=== PATIENT | female | born 1965 | race Caucasian/White ===

== ENCOUNTER 2019-10-05 01:14 | Emergency (ER) | payer MEDICAID, OTHER ==
[~2019-10-05] VITALS: Ht 164 cm; Wt 72.5 kg
--- OUTSIDE RECORDS SUMMARY | 2019-10-05 01:25 | XMS REPORT ---
Discharge Summary 2.1 Created on: 05/17/2019 ALOK ECKERT : 1965 Sex: Female Author Author ALOK PAIZ Organization Unknown Address [address] [place], [place] [address] Care Team Providers Care Disability Liaison Officer Name Role Phone Xwatchlist TIEN PAINTER Navin MILLER ROD MILL Anesth ANANYA Bro MD Attending TAMEKA HARE Physasst UNIQUE HARE Physasst LEONARDO VILLARREAL APRN [facility] Primcare Functional Status No Data Found Immunization Immunization Date Status Additional Notes Code Code System pneumococcal polysac charide PPV23 pneumococcal polysaccharide PPV23 Completed 33 CVX pneumococcal polysac charide PPV23 pneumococcal polysaccharide PPV23 Completed 33 CVX Influenza, seasonal, injectable Influenza, seasonal, injectable 03/07 Completed 141 CVX influenza, injectabl e, quadrivalent, preservative free influenza, injectable, quadrivalent, pre servative free 05/19/2018 Completed 150 CVX Mental Status No Data Found Results CBC W/ AUTO DIFF (RFLX MAN DIFF IF IND) - Collect Date/Time: 05/15/2019 06:20 [facility] ID: [id number] [address], [place], [place], [id number] LOINC: 45326-2 Test Value Unit Reference Range Code Code System WBC 16.2 TH/CMM L=4.5 H=10.8 87986-4 LOINC RBC 3.99 ML/CMM L=4.20 H=5.40 789-8 LOINC HGB 12.1 G/DL L=12.0 H=16.0 7 18-7 LOINC HCT 36.9 % L=37.0 H=47.0 4544 -3 LOINC MCV 93 FL L=81 H=99 MCH 30.3 PG L=27.0 H=33.0 MCHC 32.8 G/DL L=31.0 H=36.0 RDW SD 41 FL L=36 H=50 RDW CV 12.1 % L=0.0 H=14.8 MPV 10.7 FL L=9.3 H=12.5 PLT 194 TH/CMM L=130 H=440 777-3 LOINC NRBC# 0.00 TH/CMM L=0.00 H=0.00 NRBC% 0.0 /100WBC L=0.0 H=2.0 %NEUT 92.3 % %LYMP 4.9 % %MONO 2.2 % %EOS 0.0 % %BASO 0.1 % #NEUT 14.97 TH/CMM L=2.10 H=8.20 #LYMP 0.80 TH/CMM L=0.90 H=5.20 #MONO 0.35 TH/CMM L=0.16 H=1.00 #EOS 0.00 TH/CMM L=0.00 H=0.80 #BASO 0.01 TH/CMM L=0.00 H=0.20 MANUAL DIFF SEE BELOW SEGS 83 % BANDS 14 % LYMPHS 3 % MONOS EOS BASO METAS MYELO PROS BLASTS ATYP LYMPHS RBC MORPH BASIC METABOLIC PANEL - Collect Date/Deon e: 05/15/2019 06:20 [facility] ID: [id number] [address], [place], [place], [id number] LOINC: 20105-1 Test Value Unit Reference Range Code Code System GLUCOSE 291 MG/DL L=70 H=100 2 345-7 LOINC SODIUM 136 MEQ/L L=135 H=148 2 951-2 LOINC POTASSIUM 4.3 MEQ/L L=3.5 H=5.3 2 823-3 LOINC CHLORIDE 105 MEQ/L L=96 H=110 2 075-0 LOINC CO2 16 MEQ/L L=22 H=29 20 28-9 LOINC BUN 14 MG/DL L=8 H=22 30 94-0 LOINC CREATININE 0.95 MG/DL L=0.57 H=1.11 2160-0 LOINC CALCIUM 9.0 MG/DL L=8.2 H=10.6 27564-6 LOINC AGE 53 yrs GFR NonAA 62 GFR AA 75 eGFR 62 mL/min/1.7 eGFR AA* >60 TEST - Collect Date/Time: 05/05 08:40 [facility] ID: [id number] [address], [place], [place], [id number] LOINC: 2118-01 Test Value Unit Reference Range Code Code System TEST NEGATIVE 2118-01 LOINC KNEE 1V OR 2V - Completed: 05/14/2019 13 :40 LOINC: EXAMINATION:KNEE 1V OR 2VREASON FOR EXAM :Post-Op Evaluation Left/Right?: right COMPARISON:None available.TECHNIQUE: AP and lateral views of the right knee were obtained. FINDINGS:There is a right total knee arthroplasty. No periprosthetic lucency or fracture is seen. Alignment is near anatomic. IMPRESSION:Right total knee arthroplasty.Reviewed and Electronically Signed by: Jhonathan Fernández MD DABRSigned Date/Time: 05/14/2019 4:42 PMJob ID#: [id number] Social History Type Status Start Date End Date Code Code System Smoking History Current every day smoker 723751792 SNOMED-CT Vital Signs Vital Sign Value Unit Elgin Value Elgin Unit Date/Time Recent/Initial? Code Cod e System Systolic Blood Pressure 139 mm[Hg] 05/15/2019 11:51 Most Recent 8480-6 LOINC Diastolic Blood Pressure 92 mm[Hg] 05/15/2019 11:51 Most Recent 8462-4 LOINC Systolic Blood Pressure 134 mm[Hg] 04/29/2019 09:18 Initial 8480-6 LOINC Diastolic Blood Pressure 87 mm[Hg] 04/29/2019 09:18 Initial 8462-4 LOINC O2 Saturation 92 % 05/15/2019 11:51 Most Recent 70942-9 LOINC O2 Saturation 10 0 % 04/29/2019 09:18 Initial 14722-1 LOINC Pulse 94.0 /min 1 07/16/2018 11:51 Most Recent 8867-4 LOINC Pulse 81.0 /min 1 06/29/2018 09:18 Initial 8867-4 LOINC Respiration 18 /min 05/15/2019 11:51 Most Recent 9279-1 LOINC Respiration 16 /min 04/29/2019 09:18 Initial 9279-1 LOINC Temperature 36.6 Glendy 97.9 F 05/15/2019 11:51 Most Recent 8310-5 LOINC Temperature 36.1 Glendy 97.0 F 05/14/2019 14:05 Initial 8310-5 LOINC Assessment You had the following problems: STATUS POST KNEE REPLACEMENT Hospital Discharge Instructions Should you have any questions prior to discharge, please contact a member of your healthcare team. If you have left the hospital and have any questions, please contact your primary care physician. INSTRUCTIONS GIVEN AND DISCHARGE TO: Patient, Spouse/SO, Discharged to:__HOME__ With:__S/O_. INSTRUCTIONS GIVEN BY (TYPE IN NAME AND DATE) Goldie CAMPBELL RN Reason For Referral No Data Found Hospital Course You were admitted to [facility] on 05/14/2019 08:17 with a principal diagnosis of Unilateral primary osteoarthritis, right knee You were discharged from [facility] on 05/15/2019 15:46 Medications Medication Start Date En d Date Route Frequency Dose Code Code System Medication Instructions Spironolactone 25MG Oral Tablet 05/15/2019 Unknown ORAL DAILY 25 MILLIGRAMS 3130 96 RxNorm 25 YUSEF GRAMS ORAL DAILY Potassium Chloride 2 0MEQ Oral Tablet, Extended Release 05/15/2019 Unknown ORAL NEEDED 20 MEQ 8276668 RxNorm 20 MEQ ORAL NEEDED Losartan Potassium 5 0MG Oral Tablet 05/15/2019 Unknown ORAL DAILY 50 MILLIGRAMS 9794 92 RxNorm 50 YUSEF GRAMS ORAL DAILY Lasix 20MG Oral Tablet 05/15/2019 Unknown ORAL NEEDED 20 MILLIGRAMS 547179 RxNorm 20 YUSEF GRAMS ORAL NEEDED Carvedilol 6.25MG Or al Tablet 05/15/2019 Unknown ORAL TWO TIMES A DAY 6.25 MILLIGRAMS 19990804 RxNorm 6.25 MIL LIGRAMS ORAL TWO TIMES A DAY Atorvastatin Calcium 40MG Oral Tablet 05/15/2019 Unknown ORAL AT BEDTIME 40 MILLIGRAMS 104941 RxNorm 40 YUSEF GRAMS ORAL AT BEDTIME Albuterol Sulfate 0. 09MG/1Actuation Inhalation Suspension 05/15/2019 Unknown INHALATION NEEDED 1 P UFF 4031314 RxNorm 1 PUFF INHALATION NEEDED Advair Diskus 500/50 0.5MG-0.05MG/Actuati Inhalation Disk 05/15/2019 Unknown INHALATION TWO TIMES A DAY 1 PUFF 725867 RxNorm 1 PUFF INHALATION TWO TIMES A DAY oxyCODONE HCl 5MG Or al Tablet 05/15/2019 Unknown BY MO UT NEEDED 9411286 RxNorm 1-2 TABL ET BY MOUTH NEEDED FOR PAIN ASPIRIN 05/15/2019 Unknown ORAL DAILY 81 MILLIGRAMS RxNorm 81 MILLIGRAMS ORAL D AILY Procedures Procedure Name Date Stat us Code Code System Replacement of Right Knee Joint with Synthetic Substitute, Cemented, Open 05/14/2019 completed [id number] ICD10 PCS Implants Implanted MARIA DE JESUS Status Assigning Authority Procedure Date ADVANCE STATURE FEMORAL SIZE 3 RIGHT Active TOTAL RIGHT KNEE REPLACEMENT 05/14/2019 ADVANCE II TIBIAL BASE SIZE 3 STD Active TOTAL RIGHT KNEE REPLACEMENT 05/14/2019 ADVANCE II MEDIAL PIVOT INSERT SIZE 3 RI GHT MEDIAL PIVOT THICKNESS 10MM Active TOTAL RIGHT KNEE REPLACEMENT 05/14/2019 ADVANCE ONLAY ALL-POLY PATELLA SIZE 35 MM THICKNESS 8M M Active TOTAL RIGHT KNE E REPLACEMENT 05/14/2019 Orthopaedic cement, non-medicated 9153260552638302898835422164760652 Active FDA TOTAL RIGHT KNEE REPLACEMENT 019 Problems Problem Start Date Resol marnie Date Status Code Code System STATUS POST KNEE REPLACEMENT active 7863222563333 SNO MED-CT DIVERTICULITIS 018 resolved 863899466 SNOME D-CT CHEST PAIN 05/14/2019 resolved 62858880 SNOMED-CT PULMONARY EDEMA 2018 resolved 23248453 SNOMED -CT HYPERTENSION 05/14/2019 resolved 62865968 SNOMED-CT Allergies Allergy Substance Reaction Severity Start Date Concern Status Code Code System LISINOPRIL Mild to Moderate Active 06591 RxNorm Plan of Treatment No Data Found Encounters No Data Found Goals No Data Found Discharge Medications No Data Found Discharge Diagnosis Discharge Diagnosis Diagnosis Code Start Date Unilateral primary osteoarthritis, right knee M1711 05/14/2019 Health Concerns Section No Data Found
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
--- OUTSIDE RECORDS SUMMARY | 2019-10-05 01:26 | XMS REPORT ---
Author Author Nicole PATTERSON Organization [facility] Address [address] [place] [address] Care Team Providers Care Auto Mechanic Supervisor Name Role Phone PHIL PATTERSON Unavailable PROBLEMS Type Condition ICD9-CM Code KSI00-HG Code Onset Dates Condition S tatus SNOMED Code Problem Primary osteoarthritis of both knees M17.0 Active 586904113 Problem Gastroesophageal reflux disease, esophagitis pre sence not specified K21.9 Active 344569822 Problem Essential hypertension I10 Active 71615753 ALLERGIES No Known Allergies SOCIAL HISTORY Never Assessed PLAN OF CARE Activity Details Follow Up 1 Week Reason:after stress t est VITAL SIGNS Height 65 in 2016-07-06 Weight 162.6 lbs 2016-07-06 Temperature 97.3 degrees Fahrenheit 2016-07-06 Heart Rate 96 bpm 2016-07-06 Respiratory Rate 20 2016-07-06 Oximetry 99 % 2016-07-06 BMI 27.06 kg/m2 2016-07-06 Blood pressure systolic 162 mmHg 2016-07-06 Blood pressure diastolic 99 mmHg 2016-07-06 MEDICATIONS Medication Instructions Dosage Frequency Start Date End Date Duration S tatus Excedrin Migraine 250-250-65 MG Orally Once a day 3 tabs 24h Active Metoprolol Tartrate 25 MG Orally Twice a day 1 tablet with food 12h Jul, 30 day(s) Active RESULTS No Results PROCEDURES Procedure Date Ordered Result Body Site EKG, TRACING (IN-HOUSE) 2016-07-06 N/A MEASURE BLOOD OXYGEN LEVEL Jul 06, 2016 ELECTROCARDIOGRAM, TRACING Jul 06, 2016 IMMUNIZATIONS No Known Immunizations MEDICAL (GENERAL) HISTORY Type Description Date Medical History hypertension Medical History Fluid on knees Surgical History knee surgery Lt X 2 Surgical History tubal ligation Surgical History lump removed Lt breast Surgical History ovary removed Lt Surgical History tonsillectomy and adenoidectomy Surgical History tubes put in ears Surgical History colonoscopy Surgical History heart cath 10/2016 Hospitalization History surgeries Hospitalization History child
--- OUTSIDE RECORDS SUMMARY | 2019-10-05 01:26 | XMS REPORT ---
Author Author Nicole PATTERSON Organization [facility] [place] Address [address] [place] [address] Care Team Providers Care Freelance Web Designer Name Role Phone LEONARDOZACKPHIL Unavailable PROBLEMS Type Condition ICD9-CM Code ICH76-NB Code Onset Dates Condition S tatus SNOMED Code Problem Primary osteoarthritis of both knees M17.0 Active 432436964 Problem Gastroesophageal reflux disease, esophagitis pre sence not specified K21.9 Active 872150114 Problem Essential hypertension I10 Active 33978002 ALLERGIES No Information ENCOUNTERS Encounter Location Date Diagnosis [facility] [address] [id number] [place] [address] Apr, Weight gain R63.5 [facility] [address] [id number] [place] [address] Feb, Essential hypertension I10 ; Primary ost eoarthritis of both knees M17.0 ; Gastroesophageal reflux disease, esophagitis presence not specified K21.9 and Encounter for immunization Z23 [facility] [address] [id number] [place] [address] Dec, Gastroesophageal reflux disease, esophag itis presence not specified K21.9 [facility] [address] [id number] [place] [address] 14 Nov, 2016 Essential hypertension I10 and Gastroeso phageal reflux disease, esophagitis presence not specified K21.9 [facility] [address] [id number] [place] [address] Nov, [facility] [address] [id number] [place] [address] October, [facility] [address] [id number] [place] [address] October, [facility] [address] [id number] [place] [address] 14 Aug, 2016 Essential hypertension I10 [facility] [address] [id number] [place] [address] 09 Aug, 2016 Essential hypertension I10 [facility] [address] [id number] [place] [address] 07 Aug, 2016 [facility] [address] [id number] [place] [address] Jul, Essential hypertension I10 and Shortness of breath R06.02 [facility] [place] [address] [id number] [place] [address] Jul, Essential hypertension I10 and Shortness of breath R06.02 [facility] [place] [address] [id number] [place] [address] Jul, Shortness of breath R06.02 ; Essential h ypertension I10 and Tobacco dependence F17.200 [facility] [address] [id number] [place] [address] Jul, Essential hypertension I10 and Shortness of breath R06.02 IMMUNIZATIONS No Known Immunizations SOCIAL HISTORY Never Assessed REASON FOR VISIT med refills PLAN OF CARE VITAL SIGNS MEDICATIONS Medication Instructions Dosage Frequency Start Date End Date Duration S tatus Meloxicam 15 mg Orally Once a day 1 tablet 24h 13 Nov, 2016 30 day(s) Active Pantoprazole Sodium 20 mg Orally Once a day 1 tablet 24h Nov 30 day(s) Active RESULTS No Results PROCEDURES No Known procedures INSTRUCTIONS MEDICATIONS ADMINISTERED [...]
--- OUTSIDE RECORDS SUMMARY | 2019-10-05 01:26 | XMS REPORT ---
Author Author Nicole PATTERSON Organization [facility] Address [address] [place] [address] Care Team Providers Care Orthopedics Nurse Name Role Phone PHIL PATTERSON Unavailable PROBLEMS Type Condition ICD9-CM Code BLW40-KM Code Onset Dates Condition S tatus SNOMED Code Problem Primary osteoarthritis of both knees M17.0 Active 840910130 Problem Gastroesophageal reflux disease, esophagitis pre sence not specified K21.9 Active 415810100 Problem Essential hypertension I10 Active 98070122 ALLERGIES No Information SOCIAL HISTORY Never Assessed PLAN OF CARE VITAL SIGNS MEDICATIONS No Known Medications RESULTS No Results PROCEDURES No Known procedures IMMUNIZATIONS No Known Immunizations MEDICAL (GENERAL) HISTORY [...]
--- OUTSIDE RECORDS SUMMARY | 2019-10-05 01:26 | XMS REPORT ---
Author Author Nicole PATTERSON Organization [facility] Address [address] [place] [address] Care Team Providers Care Hand Candy Molder Name Role Phone PHIL PATTERSON Unavailable PROBLEMS Type Condition ICD9-CM Code LMN05-DE Code Onset Dates Condition S tatus SNOMED Code Problem Primary osteoarthritis of both knees M17.0 Active 368377634 Problem Gastroesophageal reflux disease, esophagitis pre sence not specified K21.9 Active 150886552 Problem Essential hypertension I10 Active 75391372 ALLERGIES No Information SOCIAL HISTORY Never Assessed [...]
--- OUTSIDE RECORDS SUMMARY | 2019-10-05 01:26 | XMS REPORT ---
Author Author Nicole PATTERSON Organization [facility] Address [address] [place] [address] Care Team Providers Care Trimmer Helper Name Role Phone PHIL PATTERSON Unavailable PROBLEMS Type Condition ICD9-CM Code [id number] Code Onset Dates Condition S tatus SNOMED Code Problem Primary osteoarthritis of both knees M17.0 Active 794978712 Problem Gastroesophageal reflux disease, esophagitis pre sence not specified K21.9 Active 503769304 Problem Essential hypertension I10 Active [id number] ALLERGIES No Known Allergies SOCIAL HISTORY Never Assessed PLAN OF CARE Activity Details Follow Up 2 Weeks Reason:bp recheck VITAL SIGNS Height 65 in 2016-07-13 Weight 166.2 lbs 2016-07-13 Temperature 97.5 degrees Fahrenheit 2016-07-13 Heart Rate 88 bpm 2016-07-13 Respiratory Rate 20 2016-07-13 BMI 27.65 kg/m2 2016-07-13 Blood pressure systolic 152 mmHg 2016-07-13 Blood pressure diastolic 95 mmHg 2016-07-13 MEDICATIONS Medication Instructions Dosage Frequency Start Date End Date Duration S tatus Symbicort 160-4.5 MCG/ACT Inhalation Twice a day- rins e mouth and spit after use 2 puffs Jul, Active Excedrin Migraine 250-250-65 MG Orally Once a day 3 tabs 24h Active Amlodipine Besylate 5 mg Orally Once a day in AM 1 tablet Jul Active Metoprolol Tartrate 25 MG Orally Twice a day 1 tablet with food 12h 30 day(s) Active Combivent Respimat 20-100 MCG/ACT Inhalation Four times a day 1 puf f 6h Jul, Active RESULTS Name Result Date Reference Range Lexiscan Stress Nuclear Test PROCEDURES Procedure Date Ordered Result Body Site PULMONARY FUNCTION TEST 2016-07-13 N/A IMMUNIZATIONS No Known Immunizations MEDICAL (GENERAL) HISTORY [...]
--- OUTSIDE RECORDS SUMMARY | 2019-10-05 01:26 | XMS REPORT ---
Author Author Nicole PATTERSON Organization [facility] Address [address] [place] [address] Care Team Providers Care Data Analytics Developer Name Role Phone PHIL PATTERSON Unavailable PROBLEMS Type Condition ICD9-CM Code [id number] Code Onset Dates Condition S tatus SNOMED Code Problem Primary osteoarthritis of both knees M17.0 Active 179564083 Problem Gastroesophageal reflux disease, esophagitis pre sence not specified K21.9 Active 461053771 Problem Essential hypertension I10 Active 99731204 ALLERGIES No Known Allergies ENCOUNTERS Encounter [facility] Date [facility] [address] [id number] [place] [address] Apr, Weight gain R63.5 [facility] [address] [id number] [place] [address] Feb, Essential hypertension I10 ; Primary ost eoarthritis of both knees M17.0 ; Gastroesophageal reflux disease, esophagitis presence not specified K21.9 and Encounter for immunization Z23 [facility] [address] [id number] [place] [address] Dec, Gastroesophageal reflux disease, esophag itis presence not specified K21.9 [facility] [address] [id number] [place] [address] 14 Nov, 2016 Essential hypertension I10 and Gastroeso phageal reflux disease, esophagitis presence not specified K21.9 [facility] [address] [id number] [place] [address] Nov, [facility] [address] [id number] [place] [address] October, [facility] [address] [id number] [place] [address] October, [facility] [address] [id number] [place] [address] 14 Aug, 2016 [facility] I10 [facility] [address] [id number] [place] [address] 09 Aug, 2016 Essential hypertension I10 [facility] [address] [id number] [place] [address] Aug, [facility] [address] [id number] [place] [address] Jul, Essential hypertension I10 and Shortness of breath R06.02 [facility] [address] [id number] [place] [address] Jul, Essential hypertension I10 and Shortness of breath R06.02 [facility] [address] [id number] [place] [address] Jul, Shortness of breath R06.02 ; Essential h ypertension I10 and Tobacco dependence F17.200 [facility] [address] [place] [address] DR [id number] [place] [address] Jul, Essential hypertension I10 and Shortness of breath R06.02 IMMUNIZATIONS No Known Immunizations SOCIAL HISTORY Never Assessed REASON FOR VISIT would like to talk about diet plan steriod inhaler is putting on weight. period irregular this month. Diane evangelista PLAN OF CARE Activity Details Follow Up prn Reason: VITAL SIGNS Height 65 in 2017-04-26 Weight 168.5 lbs 2017-04-26 Temperature 98.1 degrees Fahrenheit 2017-04-26 Heart Rate 88 bpm 2017-04-26 Respiratory Rate 18 2017-04-26 BMI 28.04 kg/m2 2017-04-26 Blood pressure systolic 130 mmHg 2017-04-26 Blood pressure diastolic 60 mmHg 2017-04-26 MEDICATIONS Medication Instructions Dosage Frequency Start Date End Date Duration S tatus Pantoprazole Sodium 40 mg Orally Once a day 1 tablet 24h Feb 30 day(s) Active Excedrin Migraine 250-250-65 MG Orally PRN 3 tabs Active Metoprolol Tartrate 25 MG Orally Twice a day 1 tablet with food 12h 30 days Active Amlodipine Besylate 5 mg Orally Once a day in AM 1 tablet 30 days Active Diclofenac Sodium 75 MG Orally Twice a day 1 tablet with food or mi lk 12h Feb, May, 30 day(s) Active Combivent Respimat 20-100 MCG/ACT Inhalation Four times a day 1 puff 6h Active RESULTS No Results PROCEDURES No Known [...]
--- OUTSIDE RECORDS SUMMARY | 2019-10-05 01:26 | XMS REPORT ---
Author Author Nicole PATTERSON Organization [facility] Address [address] [place] [address] Care Team Providers Care Visual Manager Name Role Phone PHIL PATTERSON Unavailable PROBLEMS Type Condition ICD9-CM Code IFD00-BM Code Onset Dates Condition S tatus SNOMED Code Problem Primary osteoarthritis of both knees M17.0 Active 447782399 Problem Gastroesophageal reflux disease, esophagitis pre sence not specified K21.9 Active 541739579 Problem Essential hypertension I10 Active 41942432 ALLERGIES No Information SOCIAL HISTORY Never Assessed [...]
--- OUTSIDE RECORDS SUMMARY | 2019-10-05 01:26 | XMS REPORT | CCD ---
Author Author ALOK CARDONA Organization Unknown Address [address] [facility] [address] [place] [address] Care Team Providers Care Vp Analysis Name Role Phone DENNISON, LIZBETH DO Attphys DENNISONMORGANLIZBETH DO Prisurg Allergies Allergy Code Allergy Type Reaction Status No Known Drug Allergies 0 Drug allergy Active Active Medications Medication Code Dose Units Frequency Rou te Modification Start Date/Time Flagyl 500MG Oral Tablet [id number] 500 YUSEF GRAMS THREE TIMES A DAY ORAL 08/01/2013 13:40 Prescription Detail 500 MILLIGRAMS ORAL THREE T IMES A DAY Levaquin 750MG Oral Tablet 603633 750 MILLIGRA MS DAILY ORAL 08/01/2013 13:40 Prescription Detail 750 MILLIGRAMS ORAL DAILY [place] 325MG-5MG Oral Tablet 162024 1 MILLIGR AMS NEEDED ORAL 08/01/2013 13:40 Prescription Detail 1 MILLIGRAMS ORAL NEEDED Problems Problem Code Start Date Resolved Date Sta tus Diverticulitis [id number] Acti ve Procedures Unknown or Not Available. Results Unknown or Not Available. Encounters Encounter Diagnosis Diagnosis Code Start Date Strain of tendon of neck 184239069 03/10/20 16 Function Status Unknown or Not Available. History of Immunizations Unknown or Not Available. Social History Smoking Status Code Start Date End Date Current every day smoker 854116208 Vital Signs Unknown or Not Available. Function Status Unknown or Not Available. Goals Unknown or Not Available. ASSESSMENTS Unknown or Not Available. Health Concerns Section Unknown or Not Available.
--- OUTSIDE RECORDS SUMMARY | 2019-10-05 01:26 | XMS REPORT ---
Discharge Summary 2.1 Created on: ALOK ECKERT External Reference #: [id number] : 1965 Sex: Female Author Author ALOK PAIZ Organization Unknown Address [address] [facility] [address] [place], [place] [id number] Care Team Providers Care Multi Sensor Operator Name Role Phone Xwatchlist ARABELLA Huang MD Attending [facility] Erdoc1 LEONARDO VILLARREAL APRN [facility] Functional Status No Data Found Immunization Immunization Date Status Additional Notes Code Code System pneumococcal polysaccharide PPV23 Completed 33 CVX influenza, injectable, quadrivalent, preservative free 05/19/2018 Completed 150 CVX Mental Status No Data Found Results BASIC METABOLIC PANEL - Collect Date/Deon e: 05/19/2018 06:20 [facility] ID: [id number] [address], [place], [place], [id number] [employer] ID: [id number] [address], [place], [place], [address] LOINC: 46964-4 Test Value Unit Reference Range Code Code System GLUCOSE 130 MG/DL L=70 H=100 2345-7 LOINC SODIUM 137 MEQ/L L=135 H=148 2951-2 LOINC POTASSIUM 4.2 MEQ/L L=3.5 H=5.3 2823-3 LOINC CHLORIDE 105 MEQ/L L=96 H=110 2075-0 LOINC CO2 23 MEQ/L L=22 H=29 2028-9 LOINC BUN 24 MG/DL L=8 H=22 3094-0 LOINC CREATININE 0.8 MG/DL L=0.6 H=1.6 2160-0 LOINC CALCIUM 10.1 MG/DL L=8.2 H=10.6 10102-7 LOINC AGE 52 yrs GFR NonAA 75 GFR AA 91 eGFR 75 mL/min/1.7 eGFR AA* >60 BNP - Collect Date/Time: 05/19/2018 06:2 0 [facility] ID: [id number] [address], [place], [place], [id number] [facility] ID: [id number] [address], [place], [place], [address] LOINC: 82867-5 Test Value Unit Reference Range Code Code System BNP 884 PG/ML L=0 H=100 34325-4 LOINC CBC W/ AUTO DIFF (RFLX MAN DIFF IF IND) - Collect Date/Time: 05/19/2018 06:20 [facility] ID: [id number] [address], [place], [place], [id number] [facility] ID: [id number] [address], [place], [place], [address] LOINC: 76026-4 Test Value Unit Reference Range Code Code System WBC 7.2 TH/CMM L=4.5 H=10.8 00762-1 LOINC RBC 3.97 ML/CMM L=4.20 H=5.40 789-8 LOINC HGB 11.3 G/DL L=12.0 H=16.0 718-7 LOINC HCT 35.9 % L=37.0 H=47.0 4544-3 LOINC MCV 90 FL L=81 H=99 MCH 28.5 PG L=27.0 H=33.0 MCHC 31.5 G/DL L=31.0 H=36.0 RDW SD 48 FL L=36 H=50 RDW CV 14.3 % L=0.0 H=14.8 MPV 11.4 FL L=9.3 H=12.5 PLT 278 TH/CMM L=130 H=440 777-3 LOINC NRBC# 0.00 TH/CMM L=0.00 H=0.00 NRBC% 0.0 /100WBC L=0.0 H=2.0 %NEUT 77.5 % %LYMP 16.7 % %MONO 5.3 % %EOS 0.0 % %BASO 0.1 % #NEUT 5.55 TH/CMM L=2.10 H=8.20 #LYMP 1.20 TH/CMM L=0.90 H=5.20 #MONO 0.38 TH/CMM L=0.16 H=1.00 #EOS 0.00 TH/CMM L=0.00 H=0.80 #BASO 0.01 TH/CMM L=0.00 H=0.20 MANUAL DIFF NOT IND MAGNESIUM - Collect Date/Time: 8 06:20 [facility] [employer] ID: [id number] [address], [place], [place], [address] [facility] ID: [id number] [address], [place], [place], [address] LOINC: 95169-4 Test Value Unit Reference Range Code Code System MAGNESIUM 2.1 MG/DL L=1.7 H=2.8 24942-8 LOINC PHOSPHORUS - Collect Date/Time: 05/19/20 18 06:20 [facility] ID: [id number] [address], [place], [place], [address] [facility] ID: [id number] [address], [place], [place], [address] LOINC: 2777-1 Test Value Unit Reference Range Code Code System PHOSPHORUS 5.3 MG/DL L=2.5 H=4.5 2777-1 LOINC LIPID PANEL - Collect Date/Time: 018 06:20 [facility] [employer] ID: [id number] [address] [facility] [address], [place], [place], [address] [facility] ID: [id number] [address] [facility] [address], [place], [place], [address] LOINC: 59258-6 Test Value Unit Reference Range Code Code System TRIGLYCERIDES 83 MG/DL L=0 H=135 3043-7 LOINC CHOLESTEROL 186 MG/DL L=0 H=199 2093-3 LOINC HDL 51 MG/DL L=29 H=89 2085-9 LOINC TOT CHOL/HDL 3.6 L=0.0 H=5.0 LDL (CALC) 118 MG/DL L=0 H=129 56835-7 LOINC TROPONIN-I ADV - Collect Date/Time: 05/05 02:03 [facility] ID: [id number] [address], [place], [place], [address] [facility] ID: [id number] [address] [facility] [address], [place], [place], [address] LOINC: 47086-4 Test Value Unit Reference Range Code Code System TROPONIN-I AD < 0.04 ng/ mL L=0.04 H=0.40 30353-1 LOINC TROPONIN-I ADV - Collect Date/Time: 05/05 20:50 [place] [employer] ID: [id number] [address] [facility] [address] [place], [place], [address] [facility] ID: [id number] [address] [facility] [address], [place], [place], [address] LOINC: 07841-2 Test Value Unit Reference Range Code Code System TROPONIN-I AD < 0.04 ng/ mL L=0.04 H=0.40 13981-4 LOINC TROPONIN-I ADV - Collect Date/Time: 05/05 14:37 [facility] ID: [id number] [address], [place], [place], [address] [facility] ID: [id number] [address], [place], [place], [address] LOINC: 73168-8 Test Value Unit Reference Range Code Code System TROPONIN-I AD < 0.04 ng/ mL L=0.04 H=0.40 70632-8 LOINC RESPIRATORY PANEL - Collect Date/Time: 07/19/2017 14:37 [employer] ID: [id number] [address] [address], [place], [place], [address] [facility] ID: [id number] [address], [id number] LOINC: Test Value Unit Reference Range Code Code System Adenovirus Not Detected NEG: Not Detected Coronavirus 229E Not Detected NEG: Not Detected Coronavirus HKU1 Not Detected NEG: Not Detected Coronavirus NL63 Not Detected NEG: Not Detected Coronavirus OC43 Not Detected NEG: Not Detected Human Metapneumoviru Not Detected NEG: Not Detected Human Rhinov/Enterov Not Detected NEG: Not Detected Influenza A Not Detected NEG: Not Detected Influenza B Not Detected NEG: Not Detected Parainfluenza Virus1 Not Detected NEG: Not Detected Parainfluenza Virus2 Not Detected NEG: Not Detected Parainfluenza Virus3 Not Detected NEG: Not Detected Parainfluenza Virus4 Not Detected NEG: Not Detected Resp Syncytial Virus Not Detected NEG: Not Detected Bordetella pertussis Not Detected NEG: Not Detected 77742-4 LOINC Chlamydophila pneumo Not Detected NEG: Not Detected Mycoplasma pneumonia Not Detected NEG: Not Detected TROPONIN-I ADV - Collect Date/Time: 05/05 10:45 [facility] ID: [id number] [address], [place], [address] [facility] ID: [id number] [address] [facility] [address], [place], [place], [address] LOINC: Test Value Unit Reference Range Code Code System TROPONIN-I AD < 0.04 ng/ mL L=0.04 H=0.40 15519-3 [facility] COMPREHENSIVE METABOLIC PANEL - Collect Date/Time: 05/18/2018 08:16 [facility] ID: [id number] [address] [facility] [address], [place], [place], [address] [facility] ID: [id number] [address], [place], [place], [address] LOINC: Test Value Unit Reference Range Code Code System GLUCOSE 147 MG/DL L=70 H=100 2345-7 LOINC SODIUM 140 MEQ/L L=135 H=148 2951-2 LOINC POTASSIUM 3.8 MEQ/L L=3.5 H=5.3 2823-3 LOINC CHLORIDE 106 MEQ/L L=96 H=110 2075-0 LOINC CO2 22 MEQ/L L=22 H=29 2028-9 LOINC BUN 16 MG/DL L=8 H=22 3094-0 LOINC CREATININE 0.8 MG/DL L=0.6 H=1.6 2160-0 LOINC SGOT/AST 27 IU/L L=10 H=40 1920-8 LOINC SGPT/ALT 30 IU/L L=8 H=54 1742-6 LOINC ALK PHOS 91 IU/L L=35 H=115 6768-6 LOINC TOTAL PROTEIN 7.5 G/DL L=5.5 H=8.5 2885-2 LOINC ALBUMIN 4.1 G/DL L=3.1 H=5.4 1751-7 LOINC TOTAL BILI 0.6 MG/DL L=0.0 H=1.5 1975-2 LOINC CALCIUM 9.6 MG/DL L=8.2 H=10.6 96587-1 LOINC AGE 52 yrs GFR NonAA 75 GFR AA 91 eGFR 75 mL/min/1.7 eGFR AA* >60 CBC W/ AUTO DIFF (RFLX MAN DIFF IF IND) - Collect Date/Time: 05/18/2018 08:16 [facility] ID: [id number] [address], [place], [place], [address] [facility] ID: [id number] [address], [place], [place], [address] LOINC: Test Value Unit Reference Range Code Code System WBC 6.6 TH/CMM L=4.5 H=10.8 23458-6 LOINC RBC 4.12 ML/CMM L=4.20 H=5.40 789-8 LOINC HGB 11.8 G/DL L=12.0 H=16.0 718-7 LOINC HCT 37.5 % L=37.0 H=47.0 4544-3 LOINC MCV 91 FL L=81 H=99 MCH 28.6 PG L=27.0 H=33.0 MCHC 31.5 G/DL L=31.0 H=36.0 RDW SD 48 FL L=36 H=50 RDW CV 14.4 % L=0.0 H=14.8 MPV 11.2 FL L=9.3 H=12.5 PLT 243 TH/CMM L=130 H=440 777-3 LOINC NRBC# 0.00 TH/CMM L=0.00 H=0.00 NRBC% 0.0 /100WBC L=0.0 H=2.0 %NEUT 82.3 % %LYMP 13.9 % %MONO 2.4 % %EOS 0.8 % %BASO 0.3 % #NEUT 5.41 TH/CMM L=2.10 H=8.20 #LYMP 0.91 TH/CMM L=0.90 H=5.20 #MONO 0.16 TH/CMM L=0.16 H=1.00 #EOS 0.05 TH/CMM L=0.00 H=0.80 #BASO 0.02 TH/CMM L=0.00 H=0.20 MANUAL DIFF NOT IND BNP - Collect Date/Time: 05/18/2018 08:1 6 [facility] ID: [id number] [address], [place], [place], [id number] [facility] ID: [id number] [address], [place], [place], [address] LOINC: Test Value Unit Reference Range Code Code System BNP 882 PG/ML L=0 H=100 85923-0 LOINC PT/PTT - Collect Date/Time: 05/18/2018 0 8:16 [facility] ID: [id number] [address], [place], [place], [address] [facility] ID: [id number] [address], [place], [place], [address] LOINC: Test Value Unit Reference Range Code Code System PROTIME 12.3 SEC L=9.4 H=12.5 5964-2 LOINC INR 1.0 52576-7 LOINC PTT 31.3 SEC L=25.1 H=36.5 3173-2 LOINC TROPONIN-I ADV - Collect Date/Time: 05/05 08:16 [facility] ID: [id number] [address], [place], [place], [address] [facility] ID: [id number] [address], [place], [place], [address] LOINC: Test Value Unit Reference Range Code Code System TROPONIN-I AD < 0.04 ng/ mL L=0.04 H=0.40 56547-0 LOINC CX CHEST 1 VIEW - Completed: 05/18/2018 08:33 LOINC: EXAMINATION:CX CHEST 1 VIEWREASON FOR EX AM:Chest Pain;Dyspnea; COMPARISON:April 24, 2018FINDINGS:The heart is prominent size. The pulmonary vascularity is at the upper limits for normal. No consolidating infiltrate, pleural effusion or pneumothorax is seen. Coarse interstitial markings are seen. There is mild centrilobular airspace disease. No consolidation is noted. IMPRESSION:1.The heart size and pulmonary vascularity are mildly prominent. 2.Some mild centrilobular airspace disease may represent pulmonary edema. Mild pneumonitis cannot be ruled out. 3.No consolidation is seen. Reviewed and Electronically Signed by: Jhonathan Fernández MD DABRSigned Date/Time: 05/22/2018 9:45 AMJob ID#: [id number] US ECHO 2D COMP WITH DOPP AND COLOR - Co mpleted: 05/18/2018 19:21 LOINC: [place] [address] DIAGNOSTIC IMAGING REPORT Name: BABAR DICKINSON LPatient Number: [id number]: 212 2Stay Type: O/PMedical Record Number: [id number] Date: 05/18/2018Discharge Date: Date of : 1965Age: 52 Sex: FOrdering Physician: VICENTE Hollis Physician: VICENTE Myers Physician: DERECK HansenPTryanphone Number: [phone]-Nkv Number: [id number] Class: POrder Number: [id number] Location:Grain Combine Driver Date/Time: 05/22/2018 09:37:08 Thread Grinder Initials: ANNIE unsigned transcriptions are preliminary reports and do notrepresent a Medical or Legal document US ECHO 2D COMP WITH DOPP AND COLOR [id number] COMPLETE: 05/18/2018 19:21:00 [id number] for ECHO: CHF INDICATIONS FOR PROCEDURECHF.2-D AND M-MODE FINDINGSRhythm was regular. Technical quality was mildly limited. Patient with moderately severe global left ventricular hypokinesis present. Ejection fraction is estimated at approximately 25-30 percent. There is discoordinated septal motion. There is mild biatrial enlargement with left atrium of 4.6 cm in diameter. No marked valvular pathology was noted.DOPPLER FINDINGSThere is mild to moderate mitral and mild tricuspid insufficiency present. Right ventricle systolic pressure is mildly elevated at 40 mmHg.FINAL IMPRESSION1.GLOBAL LEFT VENTRICULAR HYPOKINESIS WITH AN EJECTION FRACTION OF APPROXIMATELY 30 PERCENT. BORDERLINE LEFT VENTRICULAR HYPERTROPHY WAS PRESENT. 2.MILD LEFT ATRIAL ENLARGEMENT WITH MILD TO MODERATE MITRAL INSUFFICIENCY, RIGHT ATRIUM UPPER LIMITS OF NORMAL WITH MILD TRICUSPID INSUFFICIENCY OR MILD PULMONARY HYPERTENSION. Job#[id number] Social History Type Status Start Date End Date Code Code System Smoking History Current every day smoker 898394209 SNOMED-CT Vital Signs Vital Sign Value Unit [place] Value [place] Unit Date/Time Recent/Initial? Code Cod e System Body Mass Index 25.40 kg /m2 05/19/2018 11:49 Initial 21149-8 LOINC Systolic Blood Pressure 113 mm[Hg] 05/19/2018 07:51 Most Recent 8480-6 LOINC Diastolic Blood Pressure 77 mm[Hg] 05/19/2018 07:51 Most Recent 8462-4 LOINC Systolic Blood Pressure 152 mm[Hg] 05/18/2018 13:14 Initial 8480-6 LOINC Diastolic Blood Pressure 112 mm[Hg] 05/18/2018 13:14 Initial 8462-4 LOINC Body Surface Area 1.74 m2 05/19/2018 11:49 Initial 3140-1 LOINC Height 162.5600 cm 64.00 in 05/19/2018 11:49 Init ial 8302-2 LOINC O2 Saturation 98 % 05/19/2018 07:51 Most Recent 02380-9 LOINC O2 Saturation 98 % 05/18/2018 13:14 Initi al 68476-7 LOINC Pulse 88.0 /min 05/19/2018 07:51 Most Recent 8867-4 LOINC Pulse 104.0 /min 05/18/2018 13:14 Initi al 8867-4 LOINC Respiration 18 /min 05/19/2018 07:51 Most Recent 9279-1 LOINC Respiration 18 /min 05/18/2018 13:14 Initi al 9279-1 LOINC Temperature 36.5 Glendy 97.7 F 05/19/2018 07:51 Most Recent 8310-5 LOINC Temperature 36.4 Glendy 97.5 F 05/18/2018 13:14 Initi al 8310-5 LOINC Weight 67.1316 kg 148.00 lbs 05/19/2018 11:49 Initial 00530-1 LOINC Assessment You had the following problems: CHEST PAIN PULMONARY EDEMA HYPERTENSION Hospital Discharge Instructions Should you have any questions prior to discharge, please contact a member of your healthcare team. If you have left the hospital and have any questions, please contact your primary care physician. PRIMARY CARE PROVIDER: Cristiana Leonardo, HOME MEDICATION INSTRUCTIONS: Take only the medications listed above.. HOME DIET: Cardiac diet as tolerated ACTIVITY INSTRUCTIONS(list limitations): Activity as Tolerated. HEART FAILURE PATIENT: Weight monitoring daily, Call MD if wt gain >3#/1 day or 5#/3 day. SMOKING CESSATION: Smoking and second hand smoke is harmful, to your health.. Smoking has been linked to cancer, cardiac disease, COPD, and asthma.. For more information you can call:, 8-484-JYJ-STOP, or 1-762-AICL-[place].. A pamphlet on smoking was given to you, at admission.. FOLLOW UP APPOINTMENT: Follow up with Cristiana Campbell in 1 week. Follow up with your warehouse unloader in 2 weeks. You will need to call and make these appointments on Monday. CONTACT PHYSICIAN IF YOU EXPERIENCE ANY: fluid overload, lower extremity swelling, dehydration, chest pain. PERSONAL ITEMS RETURNED: N/A. INSTRUCTIONS GIVEN AND DISCHARGE TO: Instructions provided to:, Patient, Discharged to:__home__ With:_daughter INSTRUCTIONS GIVEN BY (TYPE IN NAME AND DATE) CASTRO Madden SCRIPTS WRITTEN BY DOCTOR GIVEN TO PATIENT? scripts sent electronically HOME MEDS RETURNED TO PATIENT: Sadaf Paulino 500/50 Reason For Referral No Data Found Hospital Course You were admitted to [facility] on 05/18/2018 12:50 with a principal diagnosis of Chest pain, unspecified You were discharged from [facility] on 05/19/2018 11:55 Medications Medication Start Date En d Date Route Frequency Dose Code Code System Atorvastatin Calcium 40MG Oral Tablet 05/19/2018 Unknown BY MOUTH DAILY 1 TABLET 537625 RxNorm ProAir HFA 0.09MG/1 INH Inhalation Aerosol Powder 05/19/2018 Unknown INHALATION NEEDED EVERY 4 HR 2 PUFF 311043 RxNorm Doxycycline 100MG Oral Capsule 05/19/2018 Unknown BY MOUTH TWO TIMES A DAY 1 0421439 RxNorm Lasix 20MG Oral Tablet 05/19/2018 Unknown BY MOUTH DAILY 1 TABLET RxNorm predniSONE 50MG Oral Tablet 05/19/2018 Unknown BY MOUTH 1 TABLET 403399 RxNorm Nitrostat 0.4MG Sublingual Tablet Unknown BUCCAL MUCOSA NEEDED EVERY 8 HR 1 TABLET 300956 RxNorm Lisinopril 20MG Oral Tablet 05/19/2018 Unknown BY MOUTH DAILY 20 MILLIGRAMS 941665 RxNorm Carvedilol 6.25MG Oral Tablet 05/19/2018 Unknown BY MOUTH TWO TIMES A DAY 6.25 MILLIGRAMS 822327 R xNorm Aspirin 81MG Oral Tablet, Chewable 1 07/20/2017 Unknown BY MOUTH DAILY W ITH A MEAL 81 MILLIGRAMS 879187 RxN orm Advair Diskus 500/50 0.5MG-0.05MG/Actuati Inhalation D isk 05/19/2018 Unknown INHALATION BID (RT ONLY) 1 PUFF 896 229 RxNorm Procedures Procedure Name Date Stat us Code Code System Biopsy of breast compl eted 399285282 SNOMED CT Implants No Data Found Problems Problem Start Date Resol marnie Date Status Code Code System CHEST PAIN active 74714812 SNOMED-CT PULMONARY EDEMA active 09842971 SNOMED-CT HYPERTENSION active 89943797 SNOMED-CT DIVERTICULITIS 018 resolved 134750456 SNOME D-CT Allergies Allergy Substance Reaction Severity Start Date Concern Status Code Code System No Known Drug Allergies Active RxNorm Plan of Treatment No Data Found Encounters No Data Found Goals No Data Found Discharge Medications No Data Found Discharge Diagnosis Discharge Diagnosis Diagnosis Code Start Date Chest pain, unspecified R079 05/18/2018 Health Concerns Section No Data Found
--- OUTSIDE RECORDS SUMMARY | 2019-10-05 01:26 | XMS REPORT ---
Author Author Nicole LIRA Organization [facility] [place] Address [address] [place] [address] Care Team Providers Care Stencil Cutter Machine Name Role Phone KD LIRA Unavailable PROBLEMS Type Condition ICD9-CM Code JXZ84-NJ Code Onset Dates Condition S tatus SNOMED Code Problem Gastroesophageal reflux disease, esophagitis pre sence not specified K21.9 Active 234794679 Problem Essential hypertension I10 Active 90860614 ALLERGIES Substance Reaction Event Type Date Status N.K.D.A. Unknown Non Drug Allergy Jul, Unknown SOCIAL HISTORY No smoking Hx information available PLAN OF CARE Activity Details Follow Up states has appt in 2 days wi hamilton Campbell to [facility] care Reason: VITAL SIGNS Height 65 in 2016-07-11 Weight 165.5 lbs 2016-07-11 Temperature 98.0 degrees Fahrenheit 2016-07-11 Heart Rate 84 bpm 2016-07-11 Respiratory Rate 20 2016-07-11 Oximetry 99 % 2016-07-11 BMI 27.54 kg/m2 2016-07-11 Blood pressure systolic 160 mmHg 2016-07-11 Blood pressure diastolic 98 mmHg 2016-07-11 MEDICATIONS Medication Instructions Dosage Frequency Start Date End Date Duration S tatus Excedrin Migraine 250-250-65 MG Orally Once a day 3 tabs 24h Active Metoprolol Tartrate 25 MG Orally Twice a day 1 tablet with food 12h Jul, 30 day(s) Active Symbicort 160-4.5 MCG/ACT Inhalation Twice a day- rins e mouth and spit after use 2 puffs Jul, Active Amlodipine Besylate 5 mg Orally Once a day in AM 1 tablet 0 Jul, 30 day(s) Active RESULTS No Results PROCEDURES Procedure Date Ordered Related Diagnosis Body Site MEASURE BLOOD OXYGEN LEVEL Jul 11, 2016 Office Visit, Est Pt., Level 3 Jul 11, 2016 IMMUNIZATIONS No Known Immunizations
--- OUTSIDE RECORDS SUMMARY | 2019-10-05 01:26 | XMS REPORT ---
Author Author Nicole PATTERSON [facility] [address] [place] [address] Care Team Providers Care Awning Assembler Name Role Phone PHIL PATTERSON Unavailable PROBLEMS Type Condition ICD9-CM Code [id number] Code Onset Dates Condition S tatus SNOMED Code Problem Primary osteoarthritis of both knees M17.0 Active 613146483 Problem Gastroesophageal reflux disease, esophagitis pre sence not specified K21.9 Active 698332718 Problem Essential hypertension I10 Active 89985390 ALLERGIES No Known Allergies ENCOUNTERS Encounter Location Date Diagnosis [facility] [address] [id number] [place] [address] Apr, Weight gain R63.5 [facility] [address] [id number] [place] [address] Feb, Essential hypertension I10 ; Primary ost eoarthritis of both knees M17.0 ; Gastroesophageal reflux disease, esophagitis presence not specified K21.9 and Encounter for immunization Z23 [facility] [address] [id number] [place] [address] Dec, Gastroesophageal reflux disease, esophag itis presence not specified K21.9 [facility] [address] [id number] [place] [address] 14 Nov, 2016 Essential hypertension I10 and Gastroeso phageal reflux disease, esophagitis presence not specified K21.9 [facility] [address] [id number] [place] [address] Nov, [facility] [address] [id number] [place] [address] October, [facility] [address] [id number] [place] [address] October, [facility] [address] [id number] [place] [address] 14 Aug, 2016 Essential hypertension I10 [facility] [address] [id number] [place] [address] 09 Aug, 2016 Essential hypertension I10 [facility] [address] [id number] [place] [address] Aug, [facility] [address] [id number] [place] [address] Jul, Essential hypertension I10 and Shortness of breath R06.02 [facility] [address] [id number] [place] [address] Jul, Essential hypertension I10 and Shortness of breath R06.02 [facility] [address] [id number] [place] [address] Jul, Shortness of breath R06.02 ; Essential h ypertension I10 and Tobacco dependence F17.200 [facility] [address] [id number] [place] [address] Jul, Essential hypertension I10 and Shortness of breath R06.02 IMMUNIZATIONS Vaccine Route Administration Date Status FLUARIX QUAD (3 AND UP) 2016 IM Intramuscular Feb 28, 2017 Ad ministered SOCIAL HISTORY Never Assessed REASON FOR VISIT HTN, Pt needs refill on B/P medication. OSWALDO Arellano PLAN OF CARE Activity Details Follow Up 3 Months Reason:htn f/u VITAL SIGNS Height 65 in 2017-02-28 Weight 174.5 lbs 2017-02-28 Temperature 97.6 degrees Fahrenheit 2017-02-28 Heart Rate 90 bpm 2017-02-28 Respiratory Rate 18 2017-02-28 BMI 29.04 kg/m2 2017-02-28 Blood pressure systolic 130 mmHg 2017-02-28 Blood pressure diastolic 84 mmHg 2017-02-28 MEDICATIONS Medication Instructions Dosage Frequency Start Date End Date Duration S tatus Amlodipine Besylate 5 mg Orally Once a day in AM 1 tablet 30 days Active Combivent Respimat 20-100 MCG/ACT Inhalation Four times a day 1 puff 6h Active Metoprolol Tartrate 25 MG Orally Twice a day 1 tablet with food 12h 30 days Active Excedrin Migraine 250-250-65 MG Orally PRN 3 tabs Active Diclofenac Sodium 75 MG Orally Twice a day 1 tablet with food or mi lk 12h 26 Feb, 2017 May, 30 day(s) Active Pantoprazole Sodium 40 mg Orally Once a day 1 tablet 24h Feb 30 day(s) Active RESULTS No Results PROCEDURES Procedure Date Ordered Result Body Site FLUARIX QUAD (3 & UP)-GSK-2014Feb 28, 2017 SINGLE IMMUNIZATION ADMIN Feb 28, 2017 INSTRUCTIONS MEDICATIONS ADMINISTERED No Known Medications MEDICAL [...]
--- OUTSIDE RECORDS SUMMARY | 2019-10-05 01:26 | XMS REPORT ---
Author Author Nicole PATTERSON Organization [facility] Address [address] [place] [address] Care Team Providers Care Tar Roofer Name Role Phone PHIL PATTERSON Unavailable PROBLEMS Type Condition ICD9-CM Code [id number] Code Onset Dates Condition S tatus SNOMED Code Problem Primary osteoarthritis of both knees M17.0 Active 195440739 Problem Gastroesophageal reflux disease, esophagitis pre sence not specified K21.9 Active 357409384 Problem Essential hypertension I10 Active 79756222 ALLERGIES No Information SOCIAL HISTORY Never Assessed PLAN OF CARE VITAL SIGNS MEDICATIONS No Known Medications RESULTS Name Result Date Reference Range CBC 2016-08-16 WBC 6.5 3.4-10.8 RBC 4.55 3.77-5.28 Hemoglobin 12.6 11.1-15.9 Hematocrit 39.4 34.0-46.6 MCV 87 79-97 MCH 27.7 26.6-33.0 MCHC 32.0 31.5-35.7 RDW 15.6 12.3-15.4 Platelets 288 150-379 Neutrophils 63 Lymphs 28 Monocytes 7 Eos 2 Basos 0 Immature Cells Neutrophils (Absolute) 4.1 1.4-7.0 Lymphs (Absolute) 1.8 0.7-3.1 Monocytes(Absolute) 0.5 0.1-0.9 Eos (Absolute) 0.1 0.0-0.4 Baso (Absolute) 0.0 0.0-0.2 Immature Granulocytes 0 Immature Grans (Abs) 0.0 0.0-0.1 NRBC Hematology Comments: PROCEDURES Procedure Date Ordered Result Body Site ROUTINE VENIPUNCTURE 2016-08-16 N/A COMPLETE CBC W/AUTO DIFF WBC August 16, 2016 IMMUNIZATIONS No Known Immunizations MEDICAL (GENERAL) [...]
--- OUTSIDE RECORDS SUMMARY | 2019-10-05 01:26 | XMS REPORT ---
Author Author Nicole PATTERSON Organization [facility] Address [address] [place] [address] Care Team Providers Care Results Technician Name Role Phone PHIL PATTERSON Unavailable PROBLEMS Type Condition ICD9-CM Code [id number] Code Onset Dates Condition S tatus SNOMED Code Problem Primary osteoarthritis of both knees M17.0 Active 867353514 Problem Gastroesophageal reflux disease, esophagitis pre sence not specified K21.9 Active 537022352 Problem Essential hypertension I10 Active 26305509 ALLERGIES No Information SOCIAL HISTORY Never Assessed [...]
--- OUTSIDE RECORDS SUMMARY | 2019-10-05 01:26 | XMS REPORT | CCD ---
Author Author ALOK ALANIZ Organization Unknown Address [address] [place], [place] [address] Care Team Providers Care Parachute Inspector Name Role Phone ANDREW HAAS DO Attphys HANDSHY RACHELLE WATTERS MD Prisurg Vital Signs Vital Sign Value Unit Weight Measured 159 lbs Height 64 in BMI (Body Mass Index) 27.29 kg/m^2 BSA (Body Surface Area) 1.8 m^2 BP Systolic 120 mmHg BP Diastolic 70 mmHg BP Systolic 103 mmHg BP Diastolic 52 mmHg BP Systolic 112 mmHg BP Diastolic 63 mmHg BP Systolic 117 mmHg BP Diastolic 72 mmHg BP Systolic 114 mmHg BP Diastolic 73 mmHg BP Systolic 105 mmHg BP Diastolic 62 mmHg BP Systolic 111 mmHg BP Diastolic 70 mmHg BP Systolic 101 mmHg BP Diastolic 53 mmHg BP Systolic 121 mmHg BP Diastolic 67 mmHg BP Systolic 107 mmHg BP Diastolic 60 mmHg BP Systolic 107 mmHg BP Diastolic 64 mmHg BP Systolic 124 mmHg BP Diastolic 52 mmHg BP Systolic 109 mmHg BP Diastolic 71 mmHg Respiratory Rate 20 bpm Respiratory Rate 20 bpm Respiratory Rate 20 bpm Respiratory Rate 16 bpm Respiratory Rate 20 bpm Respiratory Rate 20 bpm Respiratory Rate 20 bpm Respiratory Rate 20 bpm Respiratory Rate 20 bpm Respiratory Rate 23 bpm Respiratory Rate 20 bpm Respiratory Rate 18 bpm Respiratory Rate 18 bpm Heart Rate 106 bpm Heart Rate 107 bpm Heart Rate 87 bpm Heart Rate 104 bpm Heart Rate 98 bpm Heart Rate 119 bpm Heart Rate 105 bpm Heart Rate 100 bpm Heart Rate 94 bpm Heart Rate 100 bpm Heart Rate 75 bpm Heart Rate 87 bpm Heart Rate 80 bpm O2 % BldC Oximetry 98 % O2 % BldC Oximetry 97 % O2 % BldC Oximetry 100 % O2 % BldC Oximetry 100 % O2 % BldC Oximetry 96 % O2 % BldC Oximetry 97 % O2 % BldC Oximetry 100 % O2 % BldC Oximetry 99 % O2 % BldC Oximetry 100 % O2 % BldC Oximetry 99 % O2 % BldC Oximetry 98 % O2 % BldC Oximetry 98 % Body Temperature 99.1 degrees Body Temperature 98.3 degrees Body Temperature 101 degrees Body Temperature 99.7 degrees Body Temperature 99.9 degrees Body Temperature 100 degrees Body Temperature 99.5 degrees Body Temperature 98.9 degrees Body Temperature 101 degrees Body Temperature 100.7 degrees Body Temperature 98.6 degrees Body Temperature 97.5 degrees Body Temperature 97.5 degrees Allergies Allergy Code Allergy Type Reaction Status No Known Drug Allergies 0 No known drug allergies Active Procedures Unknown. History of Immunizations Unknown. Problems Problem Code Start Date Resolved Date Sta tus Diverticulitis [id number] Acti ve Results CBC W/ AUTO DIFF (RFLX MAN DIFF IF IND) Test Name Code Test Result Test Units Angela t Date/Time WBC 57569-1 7.1000 TH/CMM 07/31/2013 06: 15 RBC 789-8 3.5100 ML/CMM 07/31/2013 06:1 5 HGB 718-7 10.7000 G/DL 07/31/2013 06: 15 HCT 4544-3 32.0000 % 07/31/2013 06: 15 MCV 91.0000 FL 07/31/2013 06: 15 MCH 30.5000 PG 07/31/2013 06: 15 MCHC 33.4000 G/DL 07/31/2013 06: 15 RDW SD 42.0000 FL 07/31/2013 06: 15 RDW CV 12.6000 % 07/31/2013 06: 15 MPV 10.9000 FL 07/31/2013 06: 15 PLT 777-3 208.0000 TH/CMM 07/31/2013 06 :15 NRBC# 0.0000 TH/CMM 07/31/2013 06:1 5 NRBC% 0.0000 /100WBC 07/31/2013 06: 15 %NEUT 75.0000 % 07/31/2013 06: 15 %LYMP 14.8000 % 07/31/2013 06: 15 %MONO 9.1000 % 07/31/2013 06:1 5 %EOS 1.0000 % 07/31/2013 06:1 5 %BASO 0.1000 % 07/31/2013 06:1 5 #NEUT 5.2900 TH/CMM 07/31/2013 06:1 5 #LYMP 1.0400 TH/CMM 07/31/2013 06:1 5 #MONO 0.6400 TH/CMM 07/31/2013 06:1 5 #EOS 0.0700 TH/CMM 07/31/2013 06:1 5 #BASO 0.0100 TH/CMM 07/31/2013 06:1 5 MANUAL DIFF NOT IND N/A 4 06:15 CBC W/ AUTO DIFF (RFLX MAN DIFF IF IND) Test Name Code Test Result Test Units Angela t Date/Time WBC 47824-6 13.3000 TH/CMM 07/29/2013 20 :55 RBC 789-8 4.4200 ML/CMM 07/29/2013 20:5 5 HGB 718-7 13.4000 G/DL 07/29/2013 20: 55 HCT 4544-3 39.6000 % 07/29/2013 20: 55 MCV 90.0000 FL 07/29/2013 20: 55 MCH 30.3000 PG 07/29/2013 20: 55 MCHC 33.8000 G/DL 07/29/2013 20: 55 RDW SD 40.0000 FL 07/29/2013 20: 55 RDW CV 12.5000 % 07/29/2013 20: 55 MPV 10.5000 FL 07/29/2013 20: 55 PLT 777-3 229.0000 TH/CMM 07/29/2013 20 :55 NRBC# 0.0000 TH/CMM 07/29/2013 20:5 5 NRBC% 0.0000 /100WBC 07/29/2013 20: 55 %NEUT 84.8000 % 07/29/2013 20: 55 %LYMP 9.4000 % 07/29/2013 20:5 5 %MONO 5.3000 % 07/29/2013 20:5 5 %EOS 0.3000 % 07/29/2013 20:5 5 %BASO 0.2000 % 07/29/2013 20:5 5 #NEUT 11.2500 TH/CMM 07/29/2013 20: 55 #LYMP 1.2400 TH/CMM 07/29/2013 20:5 5 #MONO 0.7000 TH/CMM 07/29/2013 20:5 5 #EOS 0.0400 TH/CMM 07/29/2013 20:5 5 #BASO 0.0200 TH/CMM 07/29/2013 20:5 5 SEGS 93.0000 % 07/29/2013 20: 55 LYMPHS 6.0000 % 07/29/2013 20:5 5 MONOS 1.0000 % 07/29/2013 20:5 5 MANUAL DIFF SEE BELOW N/A 014 20:55 COMPREHENSIVE METABOLIC PANEL Test Name Code Test Result Test Units Angela t Date/Time GLUCOSE 2345-7 92.0000 MG/DL 07/31/2013 06 :15 SODIUM 2951-2 135.0000 MEQ/L 07/31/2013 06 :15 POTASSIUM 2823-3 3.6000 MEQ/L 07/31/2013 0 6:15 CHLORIDE 2075-0 104.0000 MEQ/L 07/31/2013 06:15 CO2 2028-9 21.0000 MEQ/L 07/31/2013 06: 15 BUN 3094-0 8.0000 MG/DL 07/31/2013 06:1 5 CREATININE 2160-0 0.6000 MG/DL 07/31/2013 06:15 SGOT/AST 1920-8 11.0000 IU/L 07/31/2013 0 6:15 SGPT/ALT 1742-6 14.0000 IU/L 07/31/2013 0 6:15 ALK PHOS 6768-6 68.0000 IU/L 07/31/2013 0 6:15 TOTAL PROTEIN 2885-2 6.4000 G/DL 07/31/19 14 06:15 ALBUMIN 1751-7 3.3000 G/DL 07/31/2013 06: 15 TOTAL BILI 1975-2 0.4000 MG/DL 07/31/2013 06:15 CALCIUM 75829-7 8.3000 MG/DL 07/31/2013 06 :15 AGE 47.0000 yrs 07/31/2013 06: 15 GFR NonAA 107.0000 07/31/2013 06:15 GFR AA 130.0000 07/31/2013 06 :15 eGFR 60.0000 mL/min/1.7 07/31/2013 06:15 eGFR AA* 60.0000 mL/min/1.7 07/31/19 14 06:15 COMPREHENSIVE METABOLIC PANEL Test Name Code Test Result Test Units Angela t Date/Time GLUCOSE 2345-7 161.0000 MG/DL 07/29/2013 2 0:55 SODIUM 2951-2 134.0000 MEQ/L 07/29/2013 20 :55 POTASSIUM 2823-3 3.7000 MEQ/L 07/29/2013 2 0:55 CHLORIDE 2075-0 104.0000 MEQ/L 07/29/2013 20:55 CO2 2028-9 18.0000 MEQ/L 07/29/2013 20: 55 BUN 3094-0 11.0000 MG/DL 07/29/2013 20: 55 CREATININE 2160-0 0.7000 MG/DL 07/29/2013 20:55 SGOT/AST 1920-8 14.0000 IU/L 07/29/2013 2 0:55 SGPT/ALT 1742-6 20.0000 IU/L 07/29/2013 2 0:55 ALK PHOS 6768-6 82.0000 IU/L 07/29/2013 2 0:55 TOTAL PROTEIN 2885-2 7.4000 G/DL 07/29/19 14 20:55 ALBUMIN 1751-7 4.2000 G/DL 07/29/2013 20: 55 TOTAL BILI 1975-2 0.5000 MG/DL 07/29/2013 20:55 CALCIUM 96075-4 10.0000 MG/DL 07/29/2013 2 0:55 AGE 47.0000 yrs 07/29/2013 20: 55 GFR NonAA 90.0000 07/29/2013 20:55 GFR AA 109.0000 07/29/2013 20 :55 eGFR 60.0000 mL/min/1.7 07/29/2013 20:55 eGFR AA* 60.0000 mL/min/1.7 07/29/19 14 20:55 URINALYSIS C&S IF IND Test Name Code Test Result Test Units Angela t Date/Time COLOR YELLOW N/A 07/29/2013 20:5 5 APPEARANCE CLEAR N/A 07/29/2013 20:55 SPEC GRAV >=1.030 N/A 07/29/2013 20:55 pH 6.0 N/A 07/29/2013 20:5 5 PROTEIN NEGATIVE N/A 07/29/2013 2 0:55 GLUCOSE NEGATIVE N/A 07/29/2013 2 0:55 KETONE NEGATIVE N/A 07/29/2013 20 :55 BILIRUBIN NEGATIVE N/A 07/29/2013 20:55 BLOOD NEGATIVE N/A 07/29/2013 20 :55 NITRITE NEGATIVE N/A 07/29/2013 2 0:55 LEUK SCREEN NEGATIVE N/A 07/29/19 14 20:55 WBC/HPF 0-5 N/A 07/29/2013 20: 55 RBC/HPF 0-5 N/A 07/29/2013 20: 55 CASTS/LPF NEGATIVE N/A 07/29/2013 20:55 CRYSTALS NEGATIVE N/A 07/29/2013 20:55 MUCOUS THRDS NEGATIVE N/A 014 20:55 BACTERIA FEW N/A 07/29/2013 20 :55 EPITH CELLS 1+ SQUAMOUS N/A 07/29 20:55 TRICHOMONAS NEGATIVE N/A 07/29/19 14 20:55 YEAST NEGATIVE N/A 07/29/2013 20 :55 CULT SET UP? NO N/A 4 20:55 COMPREHENSIVE METABOLIC PANEL Test Name Code Test Result Test Units Angela t Date/Time GLUCOSE 2345-7 102.0000 MG/DL 07/30/2013 0 6:35 SODIUM 2951-2 134.0000 MEQ/L 07/30/2013 06 :35 POTASSIUM 2823-3 3.5000 MEQ/L 07/30/2013 0 6:35 CHLORIDE 2075-0 102.0000 MEQ/L 07/30/2013 06:35 CO2 2028-9 21.0000 MEQ/L 07/30/2013 06: 35 BUN 3094-0 9.0000 MG/DL 07/30/2013 06:3 5 CREATININE 2160-0 0.7000 MG/DL 07/30/2013 06:35 SGOT/AST 1920-8 15.0000 IU/L 07/30/2013 0 6:35 SGPT/ALT 1742-6 19.0000 IU/L 07/30/2013 0 6:35 ALK PHOS 6768-6 79.0000 IU/L 07/30/2013 0 6:35 TOTAL PROTEIN 2885-2 7.3000 G/DL 07/30/19 14 06:35 ALBUMIN 1751-7 3.9000 G/DL 07/30/2013 06: 35 TOTAL BILI 1975-2 0.7000 MG/DL 07/30/2013 06:35 CALCIUM 04681-3 9.0000 MG/DL 07/30/2013 06 :35 AGE 47.0000 yrs 07/30/2013 06: 35 GFR NonAA 90.0000 07/30/2013 06:35 GFR AA 109.0000 07/30/2013 06 :35 eGFR 60.0000 mL/min/1.7 07/30/2013 06:35 eGFR AA* 60.0000 mL/min/1.7 07/30/19 14 06:35 SED RATE Test Name Code Test Result Test Units Angela t Date/Time SEDRATE 4537-7 35.0000 MM/HR 07/29/2013 20 :55 CBC W/ AUTO DIFF (RFLX MAN DIFF IF IND) Test Name Code Test Result Test Units Angela t Date/Time WBC 68507-2 11.4000 TH/CMM 07/30/2013 06 :35 RBC 789-8 4.1200 ML/CMM 07/30/2013 06:3 5 HGB 718-7 12.4000 G/DL 07/30/2013 06: 35 HCT 4544-3 36.9000 % 07/30/2013 06: 35 MCV 90.0000 FL 07/30/2013 06: 35 MCH 30.1000 PG 07/30/2013 06: 35 MCHC 33.6000 G/DL 07/30/2013 06: 35 RDW SD 41.0000 FL 07/30/2013 06: 35 RDW CV 12.6000 % 07/30/2013 06: 35 MPV 11.1000 FL 07/30/2013 06: 35 PLT 777-3 230.0000 TH/CMM 07/30/2013 06 :35 NRBC# 0.0000 TH/CMM 07/30/2013 06:3 5 NRBC% 0.0000 /100WBC 07/30/2013 06: 35 %NEUT 81.9000 % 07/30/2013 06: 35 %LYMP 9.0000 % 07/30/2013 06:3 5 %MONO 8.5000 % 07/30/2013 06:3 5 %EOS 0.4000 % 07/30/2013 06:3 5 %BASO 0.2000 % 07/30/2013 06:3 5 #NEUT 9.3200 TH/CMM 07/30/2013 06:3 5 #LYMP 1.0200 TH/CMM 07/30/2013 06:3 5 #MONO 0.9700 TH/CMM 07/30/2013 06:3 5 #EOS 0.0400 TH/CMM 07/30/2013 06:3 5 #BASO 0.0200 TH/CMM 07/30/2013 06:3 5 MANUAL DIFF PENDING N/A 06:35 AMYLASE Test Name Code Test Result Test Units Angela t Date/Time AMYLASE 1798-8 15.0000 IU/L 07/29/2013 20 :55 LIPASE Test Name Code Test Result Test Units Angela t Date/Time LIPASE 3040-3 9.0000 U/L 07/29/2013 20:5 5 Medications Medication Code Dose Units Frequency Rou te Modification Start Date/Time Stop Date/Time ONDANSETRON [ZOFRAN] INJ 4 MG/2 ML VIAL 104082 4 MG PRN SIVP 07/29/2013 23:24 PANTOPRAZOLE [PROTONIX] INJ VIAL: 40 MG 651323 40 MG DAILY SIVP 07/29/2013 23:24 METRONIDazole [FLAGYL] IV BAmg 852698 Q8H IVPB 07/29/2013 21:00 4 21:00 ~~ METRONIDazole [FLAGYL] IV BAmg 631884 500 MG ~~ DO NOT REFRIGERATE!!!!! 71502057176 1 EA FENTANYL AMP :50 mcg/ml 2ML AMP 974663 25 MCG PRN IVP 07/29/2013 23:25 LEVOFLOXACIN [LEVAQUIN] IV BAMG 702557 Q24H IVPB 07/29/2013 23:24 4 23:24 ~~ LEVOFLOXACIN [LEVAQUIN] IV BAMG 252081 750 MG ACETAMINOPHEN [TYLENOL] TABS 325MG 247521 650 MG PRN PO 07/29/2013 23:26 NS 1000 ML IV [PREDEFINED] (7983) 899240 CONT IV IV 07/30/2013 09:29 ~~ NACL 0.9% (7983) 1000ML IV BAG 883911 6460 M L NORCO [HYDROCODONE/APAP] 10/325MG TAB 276345 1 TAB PRN PO 07/30/2013 09:29 MORPHINE INJ: 2MG/ML 1 ML SYRINGE 722379 2 MG PRN IVP 07/30/2013 09:30 NICOTINE (NICODERM) PATCH: 21MG/24HR 4777318259 21 MG PRN DAILY TOPICAL 07/31/2013 12:57 [place] 325MG-5MG Oral Tablet 318816 1 MILLIGR AMS NEEDED ORAL 08/01/2013 13:40 Levaquin 750MG Oral Tablet 287207 750 MILLIGRA MS DAILY ORAL 08/01/2013 13:40 Flagyl 500MG Oral Tablet 381377 500 MILLIGRAMS THREE TIMES A DAY ORAL 08/01/2013 13:40 Medications Administered Medication Dose Units Frequency Route D ate/Time of Last Dose PANTOPRAZOLE [PROTONIX] INJ VIAL: 40 MG 40 MG DAILY SIVP 07/31/2013 09:56 METRONIDazole [FLAGYL] IV BAmg 1 EA Q8H IVPB 08/01/2013 04:42 FENTANYL AMP :50 mcg/ml 2ML AMP 25 MCG PRN IVP 07/30/2013 05:03 LEVOFLOXACIN [LEVAQUIN] IV BAMG 1 EA Q24H IVPB 07/31/2013 23:27 ACETAMINOPHEN [TYLENOL] TABS 325MG 650 MG PRN PO 07/30/2013 01:23 NS 1000 ML IV [PREDEFINED] (7983) 1 EA CONT IV IV 08/01/2013 04:44 NORCO [HYDROCODONE/APAP] 10/325MG TAB 1 EA PRN PO 08/01/2013 07:34 Encounters Unknown. Social History Smoking Status Code Start Date End Date Current every day smoker [id number] Patient Decision Aids Unknown. Instructions You were admitted to [facility] on 07/29/2013. You were discharged from [facility] on 08/01/2013. Should you have any questions prior to discharge, please contact a member of your healthcare team. If you have left the hospital and have any questions, please contact your primary care physician. HOME DIET: Regular. CONDITION AT DISMISSAL Stable. HOME MEDICATION INSTRUCTIONS: Take only the medications listed above.. HOME MEDS RETURNED TO PATIENT: N/A. ACTIVITY INSTRUCTIONS(list limitations): Activity as Tolerated. INSTRUCTED TO BRING THESE INSTR TO NEXT OFFICE VISIT No. INSTRUCTIONS GIVEN AND DISCHARGE TO: Patient. VOICES UNDERSTANDING OF INSTRUCTIONS: Yes. INSTRUCTIONS GIVEN BY (TYPE IN NAME AND DATE) PHIL DOMINGUEZ RN CONTACT YOUR PHYSICIAN IF YOU EXPERIENCE ANY: INCREASE IN PAIN, FEVER PRIMARY CARE PHYSICIAN OR PRACTITIONER: Kieran Pinedo MD, . FOLLOW UP CARE - SEE YOUR PHYSICIAN: SEE DR. HAAS IN 1 WEEK, CALL FOR APPOINTMEN TIME, OFFICE CLOSED. SCRIPTS WRITTEN BY DOCTOR GIVEN TO PATIENT? NORCO, FLAGYL, LEVAQUIN PAIN MANAGEMENT: "Pain Management at Home" instruct given, Medication, Side effects. Tx. of constipation, Non drug control methods, Managing ineffective control. When to contact physician, Verbalizes understanding of instructions. CHIEF COMPLAINT: Pain started during the night on the . Started her period but it was a pain she never had that type of pain before. Then the fever and chills started. Chief Complaint and Reason For Visit Chief Complaint Date of Onset DIVERTICULITIS Function Status Unknown. Plan of Care Unknown. Referral/Transition of Care Unknown.
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
--- OUTSIDE RECORDS SUMMARY | 2019-10-05 01:27 | XMS REPORT | Continuity of Care Document ---
Author Organization Unknown Address Unknown Phone Unavailable Allergies There is no data. Medications There is no data. Problems There is no data. Procedures There is no data. Results Test Result Range TSH - 04/03/19 09:44 TSH 2.32 mIU/L NRG Encounters ACCT No. Visit Date/Time Discharge Status Pt. Type Provider Facility Loc./Unit Complaint [id number] 08/15/2019 11:25:57 08/15/2019 23:59: 59 CLS Outpatient Stephanie Asher [id number] 05/30/2019 17:01:30 05/30/2019 23:59: 59 CLS Outpatient Stephanie Asher [id number] 07/31/2018 16:53:43 07/31/2018 23:59: 59 CLS Outpatient Stephanie Asher [id number] 06/06/2018 12:36:19 06/06/2018 23:59: 59 CLS Outpatient Stephanie Asher [id number] 05/24/2018 14:22:43 05/24/2018 23:59: 59 CLS Outpatient Tom Jeter [id number] 01/08/2014 11:15:39 01/08/2014 23:59: 59 CLS Outpatient Kelly Peña [id number] 08/22/2013 15:59:46 08/22/2013 23:59: 59 CLS Outpatient Umesh Sommer [id number] 08/09/2013 10:50:40 08/09/2013 23:59: 59 CLS Outpatient Umesh Sommer [id number] 08/05/2013 16:04:24 08/05/2013 23:59: 59 CLS Outpatient Umesh Sommer [id number] 06/20/2013 16:34:18 06/20/2013 23:59: 59 CLS Outpatient Cally Rendon [id number] 03/29/2019 08:45:00 03/29/2019 23:59: 59 CLS Outpatient PHIL PATTERSON [facility] [id number] 04/03/2019 08:40:00 Document Registration
[2019-10-05 01:53] LABS: BASOPHILS % (AUTO) 0 % (0-10); EOSINOPHILS % (AUTO) 0 % (0-10); HEMATOCRIT 32 % (35-52); HEMOGLOBIN 10.6 G/DL (11.5-16.0); LYMPHOCYTES # (AUTO) 0.8 X 10^3 (1.0-4.0); LYMPHOCYTES % (AUTO) 6 % (12-44); MEAN CORPUSCULAR HEMOGLOBIN 29 PG (25-34); MEAN CORPUSCULAR HGB CONC 33 G/DL (32-36); MEAN CORPUSCULAR VOLUME 89 FL (80-99); MEAN PLATELET VOLUME 10.3 FL (7.4-10.4); MONOCYTES # (AUTO) 0.9 X 10^3 (0.0-1.0); MONOCYTES % (AUTO) 7 % (0-12); NEUTROPHILS # (AUTO) 11.7 X 10^3 (1.8-7.8); NEUTROPHILS % (AUTO) 88 % (42-75); PLATELET COUNT 235 10^3/uL (130-400); WHITE BLOOD COUNT 13.4 10^3/uL (4.3-11.0)
[2019-10-05 02:08] LABS: INR 1.1 (0.8-1.4); PROTHROMBIN TIME PATIENT 14.2 SEC (12.2-14.7)
[2019-10-05 02:12] LABS: ANISOCYTOSIS SLIGHT; BAND NEUTROPHILS 5 %; LYMPHOCYTES % (MANUAL) 6 %; MONOCYTES % (MANUAL) 5 %; NEUTROPHILS % (MANUAL) 84 %; POLYCHROMASIA SLIGHT
[2019-10-05 02:21] LABS: ERYTHROCYTE SEDIMENTATION RATE 133 MM/HR (0-30)
[2019-10-05 02:27] LABS: ALANINE AMINOTRANSFERASE 19 U/L (0-55); ALBUMIN 4.1 GM/DL (3.2-4.5); ALKALINE PHOSPHATASE 105 U/L (40-136); BILIRUBIN,TOTAL 0.5 MG/DL (0.1-1.0); BUN/CREATININE RATIO 19; CALCIUM 9.9 MG/DL (8.5-10.1); CARBON DIOXIDE 19 MMOL/L (21-32); CHLORIDE 97 MMOL/L (98-107); CREATININE SERUM 0.84 MG/DL (0.60-1.30); GFR ESTIMATED > 60; GLUCOSE 166 MG/DL (70-105); POTASSIUM 3.9 MMOL/L (3.6-5.0); SODIUM 130 MMOL/L (135-145); TOTAL PROTEIN 7.9 GM/DL (6.4-8.2); URIC ACID 6.2 MG/DL (2.6-7.2)
[2019-10-05] MEDS ORDERED: LACTATED RINGERS 1,000 ML IV ONE (02:47)
[2019-10-05] MEDS ORDERED: ACETAMINOPHEN 500 MG TAB (TYLENOL) PO ONE (03:00)
[2019-10-05 03:12] LABS: BILIRUBIN,URINE NEGATIVE (NEGATIVE); CLARITY,URINE CLEAR; COLOR,URINE YELLOW; GLUCOSE, URINE (UA) NEGATIVE (NEGATIVE); KETONES,URINE NEGATIVE (NEGATIVE); LEUKOCYTE ESTERASE ,URINE 1+ (NEGATIVE); NITRITE,URINE NEGATIVE (NEGATIVE); PROTEIN,URINE TRACE (NEGATIVE)
[2019-10-05] MEDS ORDERED: PIPERACILLIN SODIUM/TAZOBACTAM 4.5 GM in NS (IVPB) 100 ML IV ONE (03:15)
--- NOTE | 2019-10-05 03:23 | ED General ---
General Chief Complaint: General Problems/Pain Stated Complaint: BOTH ARMS SWOLLEN,COPD,PACE MAKER Nursing Triage Note: swelling throughout body, states it comes and goes. c/o pain and skin feels tight, states numbness and tingling. Nursing Sepsis Screen: No Definite Risk Source of Information: Patient Exam Limitations: No Limitations History of Present Illness Date Seen by Provider: October 05, 2019 Time Seen by Provider: 01:34 Initial Comments This 54-year-old woman presents to the emergency room with primary complaint of bilateral upper extremity swelling and paresthesias. On assessment she is found to be febrile which she was not aware of. She complains of frequent problems with swelling and she is prescribed Lasix to take as needed. She reports pacemaker placement one year ago due to cardiomyopathy. She sees Dr. Asher in [place] for her cardiac care. Her primary care provider is Phil Shipley at the [facility] clinic in [place] her extremities are diffusely swollen, upper extremities worse than lower. She also has significant arthralgia associated with this. She has patchy erythema over the joints of the upper extremities. She admits to using methamphetamines by snorting within the past couple days. She reports being told by doctors previously she may have some type of arthritic or rheumatologic problem. She denies any cough, shortness of breath, exposure to ill persons, or contact with persons under investigation for COVID 19. She has chronic incontinence. Patient also had recent knee replacements, the right knee in May and the left knee the beginning of August. Current exacerbation of symptoms started October 02. Allergies and Home Medications Allergies Coded Allergies: lisinopril (Verified Allergy, Unknown, 10/05/19) Patient Home Medication List Home Medication List Reviewed: Yes Review of Systems Review of Systems Constitutional: see HPI EENTM: no symptoms reported Respiratory: no symptoms reported Cardiovascular: see HPI Gastrointestinal: no symptoms reported Genitourinary: see HPI : No Musculoskeletal: see HPI Skin: see HPI Psychiatric/Neurological: No Symptoms Reported Hematologic/Lymphatic: No Symptoms Reported Immunological/Allergic: see HPI Past Bdvlhwq-Rfwhlq-Opznqg Hx Past Med/Social Hx: Reviewed Nursing Past Med/Soc Hx Patient Social History Alcohol Use: Denies Use Recreational Drug Use: Yes (LAST USED YESTERDAY) Drug of Choice: METH Smoking Status: Current Everyday Smoker Recent Foreign Travel: No Contact w/Someone Who Travel: No Recent Infectious Disease Expo: No Recent Hopitalizations: No Physical Abuse: No Sexual Abuse: No Mistreated: No Fear: No Seasonal Allergies Seasonal Allergies: No Past Medical History Surgeries: Yes Joint Replacement (bilateral knees), Lumpectomy, Orthopedic, Pacemaker, Tubal Ligation Respiratory: No Cardiac: Yes (PACEMAKER) Cardiomyopathy, Hypertension : No Hx : 3 Hx Para: 4 Hx Total # of Abortions (Sp): 1 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 oz. kg; 26.00 BMI Method: General Appearance: WD/WN, Mild Distress HEENT: PERRL/EOMI, TMs Normal, Normal ENT Inspection, Pharynx Normal Neck: Normal Inspection Respiratory: Lungs Clear, Normal Breath Sounds, No Accessory Muscle Use, No Respiratory Distress Cardiovascular: No Murmur, Normal Peripheral Pulses, Tachycardia Gastrointestinal: Non Tender, Soft Extremity: Other (diffusely edematous extremities, upper extremities greater than lower and left knee greater than right. There is patchy erythema over the upper extremity joints. There is diffuse tenderness and pain with movement. 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 Norm as Tested Skin: warm/dry, other (see above) Focused Exam Lactate Level 10/05/19 01:40: Lactic Acid Level 1.98 Lactic Acid Level Progress/Results/Core Measures Suspected Sepsis Recent Fever Within 48 Hours: No Infection Criteria Present: None New/Unexplained Altered Menta: No Sepsis Screen: No Definite Risk SIRS Temperature: Pulse: 115 Respiratory Rate: 20 Laboratory Tests 10/05/19 01:40: White Blood Count 13.4H Blood Pressure 134 /79 Mean: 97 10/05/19 01:40: Lactic Acid Level 1.98 Laboratory Tests 10/05/19 01:40: Creatinine 0.84, INR Comment 1.1, Platelet Count 235, Total Bilirubin 0.5 Results/Orders Lab Results Laboratory Tests Test 10/05/19 01:38 10/05/19 01:40 10/05/19 02:55 Range/Units White Blood Count 13.4 H 4.3-11.0 10^3/uL Red Blood Count 3.63 L 4.35-5.85 10^6/uL Hemoglobin 10.6 L 11.5-16.0 G/DL Hematocrit 32 L 35-52 % Mean Corpuscular Volume 89 80-99 FL Mean Corpuscular Hemoglobin 29 25-34 PG Mean Corpuscular Hemoglobin Concent 33 32-36 G/DL Red Cell Distribution Width 14.0 10.0-14.5 % Platelet Count 235 130-400 10^3/uL Mean Platelet Volume 10.3 7.4-10.4 FL Neutrophils (%) (Auto) 88 H 42-75 % Lymphocytes (%) (Auto) 6 L 12-44 % Monocytes (%) (Auto) 7 0-12 % Eosinophils (%) (Auto) 0 0-10 % Basophils (%) (Auto) 0 0-10 % Neutrophils # (Auto) 11.7 H 1.8-7.8 X 10^3 Lymphocytes # (Auto) 0.8 L 1.0-4.0 X 10^3 Monocytes # (Auto) 0.9 0.0-1.0 X 10^3 Eosinophils # (Auto) 0.0 0.0-0.3 10^3/uL Basophils # (Auto) 0.0 0.0-0.1 10^3/uL Neutrophils % (Manual) 84 % Lymphocytes % (Manual) 6 % Monocytes % (Manual) 5 % Band Neutrophils 5 % Polychromasia SLIGHT Anisocytosis SLIGHT Erythrocyte Sedimentation Rate 133 H 0-30 MM/HR Prothrombin Time 14.2 12.2-14.7 SEC INR Comment 1.1 0.8-1.4 Activated Partial Thromboplast Time 36 H 24-35 SEC Sodium Level 130 L 135-145 MMOL/L Potassium Level 3.9 3.6-5.0 MMOL/L Chloride Level 97 L 98-107 MMOL/L Carbon Dioxide Level 19 L 21-32 MMOL/L Anion Gap 14 5-14 MMOL/L Blood Urea Nitrogen 16 7-18 MG/DL Creatinine 0.84 0.60-1.30 MG/DL Estimat Glomerular Filtration Rate > 60 BUN/Creatinine Ratio 19 Glucose Level 166 H 70-105 MG/DL Lactic Acid Level 1.98 0.50-2.00 MMOL/L Uric Acid 6.2 2.6-7.2 MG/DL Calcium Level 9.9 8.5-10.1 MG/DL Corrected Calcium 9.8 8.5-10.1 MG/DL Total Bilirubin 0.5 0.1-1.0 MG/DL Aspartate Amino Transf (AST/SGOT) 18 5-34 U/L Alanine Aminotransferase (ALT/SGPT) 19 0-55 U/L Alkaline Phosphatase 105 40-136 U/L C-Reactive Protein High Sensitivity 32.98 H 0.00-0.50 MG/DL B-Type Natriuretic Peptide 42.4 <100.0 PG/ML Total Protein 7.9 6.4-8.2 GM/DL Albumin 4.1 3.2-4.5 GM/DL Procalcitonin 0.14 H <0.10 NG/ML Urine Color YELLOW Urine Clarity CLEAR Urine pH 6.0 5-9 Urine Specific [place] 1.015 L 1.016-1.022 Urine Protein TRACE H NEGATIVE Urine Glucose (UA) NEGATIVE NEGATIVE Urine Ketones NEGATIVE NEGATIVE Urine Nitrite NEGATIVE NEGATIVE Urine Bilirubin NEGATIVE NEGATIVE Urine Urobilinogen 0.2 < = 1.0 MG/DL Urine Leukocyte Esterase 1+ H NEGATIVE Urine RBC (Auto) 2+ H NEGATIVE Urine RBC /HPF Urine WBC /HPF Urine Crystals /LPF Urine Bacteria /HPF Urine Casts /LPF Urine Mucus /LPF Urine Culture Indicated CULTURE PENDING Urine Opiates Screen POSITIVE H NEGATIVE Urine Oxycodone Screen NEGATIVE NEGATIVE Urine Methadone Screen NEGATIVE NEGATIVE Urine Propoxyphene Screen NEGATIVE NEGATIVE Urine Barbiturates Screen NEGATIVE NEGATIVE Ur Tricyclic Antidepressants Screen POSITIVE H NEGATIVE Urine Phencyclidine Screen NEGATIVE NEGATIVE Urine Amphetamines Screen POSITIVE H NEGATIVE Urine Methamphetamines Screen POSITIVE H NEGATIVE Urine Benzodiazepines Screen POSITIVE H NEGATIVE Urine Cocaine Screen NEGATIVE NEGATIVE Urine Cannabinoids Screen NEGATIVE NEGATIVE Micro Results Microbiology 10/05/19 Urine Culture - Preliminary, Resulted Escherichia coli 10/05/19 Blood Culture - Preliminary, Resulted No growth 10/05/19 Blood Culture - Preliminary, Resulted No growth My Orders Orders - SANDRINE MCGOWAN MD Cbc With Automated Diff (10/05/19 01:42) Comprehensive Metabolic Panel (10/05/19 01:42) Blood Culture (10/05/19 01:42) Urinalysis (10/05/19 01:42) Urine Culture (10/05/19 01:42) Protime With Inr (10/05/19 01:42) Partial Thromboplastin Time (10/05/19 01:42) Chest 1 View, Ap/Pa Only (10/05/19 01:42) Ed Iv/Invasive Line Start (10/05/19 01:42) Ed Iv/Invasive Line Start (10/05/19 01:42) Vital Signs Adult Sepsis Patie Q15M (10/05/19 01:42) O2 (10/05/19 01:42) Remove Rings In Anticipation O (10/05/19 01:42) Lactic Acid Analyzer (10/05/19 01:42) Hs C Reactive Protein (10/05/19 01:42) Erythrocyte Sedimentation Rate (10/05/19 01:42) BNP (10/05/19 01:42) Ekg Tracing (10/05/19 01:42) Monitor-Rhythm Ecg Trace Only (10/05/19 01:42) Drug Screen Stat (Urine) (10/05/19 01:47) Manual Differential (10/05/19 01:40) Uric Acid (10/05/19 01:40) Ra Factor (Rheumatoid Factor) (10/05/19 02:43) Procalcitonin (Pct) (10/05/19 02:46) Acetaminophen Tablet (Tylenol Tablet) (10/05/19 03:00) Lactated Ringers (Lr 1000 Ml Iv Solution (10/05/19 02:47) Piperacillin Sodium/Tazobactam (Zosyn Vi (10/05/19 03:15) Fentanyl Injection (Sublimaze Injection (10/05/19 03:30) Ketorolac Injection (Toradol Injection) (10/05/19 04:15) Morphine Injection (Morphine Injection (10/05/19 04:22) Vancomycin Injection (Vancomycin Injecti (10/05/19 05:30) Medications Given in ED Vital Signs/I&O 10/05/19 10/05/19 07:23 09:35 Pulse 103 90 Resp 18 18 B/P (MAP) 137/88 (104) 136/83 Pulse Ox 99 98 O2 Delivery Room Air Nasal Cannula O2 Flow Rate 2.00 Capillary Refill : Less Than 3 Seconds Blood Pressure Mean: 97 Progress Note #1: Time: 03:37 Progress Note Septic workup is being pursued. Blood cultures and lactic acid were obtained. Lactic acid was normal. Sedimentation rate and CRP are markedly elevated. Given her clinical presentation and lab findings, I'm suspicious this may be a systemic rheumatologic problem or vasculitis. No source of bacterial infection was found. Zosyn was given empirically. Progress Note #2: Time: 03:59 Progress Note Patient's pain had been escalating. She received fentanyl which reduced her pain from 10 down to 6. Toradol is being ordered for further pain control. Case was discussed with Dr. Sanches who is agreeable to admission. However, she would like me to obtain a phone consultation with rheumatology before admission. Neither Emiliano nor Alessandra in [place] have rheumatology brim ironer hand. I'm awaiting a call back from [facility]. Progress Note #3: Time: 05:36 Progress Note I was able to consult with Dr. Ty with [facility] rheumatology. It is difficult for him to make a determination on etiology of her condition without actually examining the patient himself. He of course stressed the importance of ruling out infectious etiologies. Patient has received Zosyn empirically and will receive vancomycin. However, I think infection is less likely than a rheumatologic problem. She does not appear septic. Patient reports she has had an episode like this previously for which she sought care in the emergency room in [place] and was told she likely had arthritis. Meningitis is unlikely as headache or nuchal rigidity is not presently a part of the presentation. Patient is also not lethargic. She has other evidence of long-standing arthritis including need for knee replacements and changes to the joints of the hands. Patient also reports her sister has rheumatoid arthritis. She also has history of cardiomyopathy without notation of coronary artery disease. Dr. Ty recommended further workup with MINDY, CCP, and x-rays of the joints. I will allow those studies to be done at [facility] since I would not have immediate results in the ER anyway. Patient's pain is now controlled after morphine. Patient is agreeable to transfer to [facility]. Accepting physician is Dr. Pearl on the internal medicine service. ECG Initial ECG Impression Date: October 05, 2019 Initial ECG Impression Time: 01:41 Initial ECG Rate: 114 Comment Atrial sensed ventricular paced rhythm with mild tachycardia. Diagnostic Imaging Diagonstic Imaging: Xray Plain Films/CT/US/NM/MRI: chest Comments Chest x-ray viewed by me. Report not yet available. No acute abnormality appreciated. Departure Impression Primary Impression: Polyarthralgia Additional Impressions: Febrile illness Methamphetamine abuse Disposition: XFER SHT-TRM HOSP Condition: Improved Transfer Transfer Reason: Exceeds level of care Time Spoke to Accepting Phy: 05:07 Transfer Progress Notes Accepting physician Dr. Pearl Transfer Time: 09:30 Transfer Facility: [facility] Method of Transfer: EMS Departure-Patient Inst. Referrals: PHIL PATTERSON APRN (PCP/Family) Primary Care Physician SANDRINE MCGOWAN MD October 05, 2019 03:23
[2019-10-05] MEDS ORDERED: fentaNYL INJECTION 100 MCG/2 ML AMP IVP ONE (03:30)
[2019-10-05 03:44] LABS: AMPHETAMINE SCREEN, URINE POSITIVE (NEGATIVE); BARBITURATE SCREEN URINE NEGATIVE (NEGATIVE); BENZODIAZEPINES SCREEN URINE POSITIVE (NEGATIVE); CANNABINOID SCREEN, URINE NEGATIVE (NEGATIVE); COCAINE SCREEN URINE NEGATIVE (NEGATIVE); METHADONE STAT NEGATIVE (NEGATIVE); METHAMPHETAMINE SCREEN URINE S POSITIVE (NEGATIVE); OPIATE SCREEN URINE POSITIVE (NEGATIVE); OXYCODONE STAT NEGATIVE (NEGATIVE); PROPOXYPHENE STAT NEGATIVE (NEGATIVE); TRICYCLIC ANTIDEPRESSANTS SCRE POSITIVE (NEGATIVE)
[2019-10-05 03:50] VITALS: BP 140/88
[2019-10-05] MEDS ORDERED: KETOROLAC 30 MG/ML VIAL IVP ONE (04:15)
[2019-10-05] MEDS ORDERED: morphine INJ 10 MG/ML 1ML (SYR OR VIAL) IVP STA (04:22)
[2019-10-05 05:53] VITALS: BP 137/79
[2019-10-05] MEDS: VANCOMYCIN INJECTION 750 MG in NS (IVPB) 250 ML IV SCH ×2 (06:04→07:13)
--- NOTE | 2019-10-05 07:00 | NUR ---
REPORT AND CARE OF PATIENT FROM BISHOP ERAZO. Addendum: 10/05/19 at 0737 by JIAN TO PEDRO GARCIA C/O
--- NOTE | 2019-10-05 07:19 | NUR ---
CALLED EMS TO CHECK TO SEE IF EMS NOTIFIED OF TRANSFER WILL BE AFTER 8A
[2019-10-05 07:23] VITALS: BP 137/88
--- NOTE | 2019-10-05 07:49 | NUR ---
NO CHNAGE IN CONDITION. PACED RYTHEM. CON'T TO WAIT FOR EMS FOR TRANSFER
--- NOTE | 2019-10-05 08:35 | Diagnostic Imaging Report ---
EXAM: Portable erect AP chest at 2:15 INDICATION: Swelling throughout body There are no prior studies available for comparison. The heart size is within normal limits. There is a defibrillator device in place on the left. The leads seem to be in good position. There is elevation of the right hemidiaphragm. I suspect this finding is long-standing in nature. If previous exams are available, they would be helpful for comparison. The lungs, where visualized, are generally clear. There are a few carotid bronchovascular markings in the right infrahilar region but there is no clear evidence for pneumonia in this area. The mediastinum is not widened. The osseous structures are intact. IMPRESSION: 1. There are a few carotid bronchovascular markings in the right infrahilar region but there is no clear evidence for pneumonia. However if clinical concern regarding an underlying abnormality persists, a follow-up PA and lateral chest would be recommended for further study. Dictated by: Dictated on workstation # [id number]
--- NOTE | 2019-10-05 09:15 | NUR ---
EMS HERE FOR TRANSFR.
--- NOTE | 2019-10-05 09:30 | NUR ---
DISCHARGE WITH EMS TO [facility].
--- NOTE | 2019-10-05 09:34 | NUR ---
EMS TOOK ORGINAL COPY OF TRANSFER FORM CALLED DISPATCH TO HAVE THEM SAVE FOR CHART.
[2019-10-05 09:35] VITALS: BP 136/83
== END 2019-10-05 09:35 | disposition short-term general hospital (02) ==
LOC: EDUNIT# 01:14 → ER 01:21
DX: M25.541 Pain in joints of right hand (principal); M25.542 Pain in joints of left hand; F15.10 Other stimulant abuse, uncomplicated; R50.9 Fever, unspecified; I11.9 Hypertensive heart disease without heart failure; I42.9 Cardiomyopathy, unspecified; F17.200 Nicotine dependence, unspecified, uncomplicated; Z88.8 Allergy status to other drugs, medicaments and biological substances; Z96.652 Presence of left artificial knee joint; Z95.0 Presence of cardiac pacemaker; Z98.51 Tubal ligation status
CPT/HCPCS: 36415; 51702; 71045; 80053; 80306; 81000; 83605; 83880; 84145; 84550; 85007; 85027; 85610; 85652; 85730; 86141; 86431; 87040; 87088; 87186; 93005; 93041

== ENCOUNTER → 2020-11-20 | Outpatient (CLI) | payer MEDICARE, MEDICAID ==
[~2020-11-20] MED LIST: CATHETER FLUSH 10 ML SYR IV PRN; HOLD METFORMIN - RECEIVED CONTRAST 20 ML VIAL IV SCH; IOHEXOL 350 MG/ML 100 ML (OMNIPAQUE 350) VIAL IV ONE; NS 100 ML (IVPB) BAG IV ONE
[2020-11-20 10:48] LABS: ALANINE AMINOTRANSFERASE 27 U/L (0-55); ALBUMIN 4.5 GM/DL (3.2-4.5); ALKALINE PHOSPHATASE 89 U/L (40-136); BILIRUBIN,TOTAL 0.4 MG/DL (0.1-1.0); BUN/CREATININE RATIO 17; CALCIUM 9.7 MG/DL (8.5-10.1); CARBON DIOXIDE 24 MMOL/L (21-32); CHLORIDE 100 MMOL/L (98-107); CREATININE SERUM 0.95 MG/DL (0.60-1.30); GFR ESTIMATED > 60; GLUCOSE 119 MG/DL (70-105); POTASSIUM 4.6 MMOL/L (3.6-5.0); SODIUM 136 MMOL/L (135-145); TOTAL PROTEIN 7.7 GM/DL (6.4-8.2)
--- NOTE | 2020-11-20 14:08 | Diagnostic Imaging Report ---
PROCEDURE: CT abdomen with contrast only. TECHNIQUE: Multiple contiguous axial images were obtained through the abdomen after the administration of intravenous contrast. Auto Exposure Controls were utilized during the CT exam to meet ALARA standards for radiation dose reduction. Date: November 20, 2020. Indication: 55-year-old female, right upper quadrant abdominal pain. Comparison: None. Findings: The visualized portions of the lung bases are clear. The heart is not enlarged. There is no pericardial effusion. The liver is unremarkable in size and contour. There is no identified liver lesion. The main, right, and left portal veins are patent. The gallbladder is unremarkable. There is no intrahepatic or extrahepatic bile duct dilation. The main pancreatic duct is not abnormally dilated. Unremarkable appearance of the pancreatic parenchyma. The spleen is normal in size. The adrenal glands are unremarkable. There are nonobstructing right renal stones. There is no hydronephrosis. The visualized portions of the intestinal tract are not distended. There is no free intraperineal air. There is no drainable fluid collection. There is no ascites. There are atherosclerotic calcifications. There is no identified abnormally enlarged lymph node in the abdomen meeting size criteria for adenopathy. There is no identified acute bony abnormality. Impression: 1. Nonobstructing right renal stones. No hydronephrosis. 2. No identified acute abnormality in the abdomen. Dictated by: Dictated on workstation # [id number]
== END ==
LOC: RAD 10:13
PROVIDERS: ATTEND Nurse Practitioner Family
DX: N20.0 Calculus of kidney (principal); I10 Essential (primary) hypertension
CPT/HCPCS: 36415; 74160; 80053